=== PATIENT | male | born 1945 | race Caucasian/White ===

== ENCOUNTER 2016-10-26 19:38 | Inpatient (IN) | payer MEDICARE, OTHER ==
[~2016-10-26] VITALS: Ht 182.9 cm; Wt 77.7 kg
--- NOTE | ~2016-10-26 | ER ---
PATIENT'S NAME: ARNAUD LION [facility] AGE: 71 Y [address] ROOM: [place] [address] LOCATION: GPCU ADMIT DATE: 10/26/2016 ER/Outpatient Report DISCHARGE DATE: FAMILY PHYSICIAN: BREANNA REDDY MD ATTENDING PHYSICIAN: MARVA HO Time of arrival: 1938 hours. Time of evaluation: 1941 hours. CHIEF COMPLAINT: High blood pressure and right knee pain. HISTORY OF PRESENT ILLNESS: The patient is a 71-year-old male who presents to the emergency department today with a chief complaint of right knee pain, right leg pain, and high blood pressure. He was initially seen and evaluated over Dr. Reddy' office; however, he was found to have an abdominal bruit as well as right leg pain and high blood pressure, and was sent over here to the emergency department for further evaluation, treatment, and management. The patient denies any chest pain. No shortness of breath. He denies any abdominal pain. No fevers or chills. No nausea or vomiting. The pain is currently mild in severity. It is sharp. It is in the right leg. PAST MEDICAL HISTORY: None. PAST SURGICAL HISTORY: Left wrist, hernia. SOCIAL HISTORY: The patient denies any tobacco, alcohol, or illicit drug use. ALLERGIES: NO KNOWN DRUG ALLERGIES. MEDICATIONS: None. PRIMARY CARE DOCTOR: Breanna Reddy M.D. REVIEW OF SYSTEMS: All systems are reviewed by myself and are negative with the exception of those discussed in HPI and past medical history. PATIENT'S NAME: ARNAUD LION [facility] AGE: 71 Y [address] ROOM: [place] [address] LOCATION: GPCU ADMIT DATE: 10/26/2016 ER/Outpatient Report DISCHARGE DATE: FAMILY PHYSICIAN: BREANNA REDDY MD ATTENDING PHYSICIAN: MARVA HO PHYSICAL EXAMINATION: VITAL SIGNS: Weight 77.8 kg, blood pressure 235/113, pulse 68, respiratory rate 16, temperature 98.4, oxygen saturation 94% on room air. GENERAL: The patient is a 71-year-old male who appears stated age, in no acute distress at this time. HEENT: Head: Normocephalic, atraumatic. Pupils are equal, round, and reactive to light. Extraocular motions are intact. Nares are patent bilaterally. TMs are clear. Oropharynx is clear. NECK: Supple. There is no nuchal rigidity. CARDIOVASCULAR: Regular rate and rhythm. No murmurs, rubs, or gallops. LUNGS: Clear to auscultation bilaterally. No wheezes, rales, or rhonchi. ABDOMEN: Soft, nontender, and nondistended. No rebound, rigidity, or guarding. MUSCULOSKELETAL: The patient does have tenderness to palpation diffusely of the right leg with some mild swelling noted. SKIN: Warm and dry. EXTREMITIES: 2/4 pulses which are equal in all 4 extremities. LABORATORY DATA AND X-RAYS: Labs and x-rays are obtained. EKG is obtained, is interpreted by myself, does show sinus rhythm with a rate of 60, no left axis deviation, normal intervals. There is ST depression noted in V6, aVL, and I. There is T-wave inversions noted in I, aVL, V5, and V6. There is no ST elevation. CBC is unremarkable except for hemoglobin 16.2, platelet 149. Coags are normal. CMP is unremarkable except for potassium 3.1, glucose 104. LFTs are normal. Magnesium is normal. CK is normal. CK-MB is normal. Troponin 0.044, proBNP is 2016. DVT is negative. D-dimer is 0.63. CT scan angio of the aorta shows no evidence of aneurysm or dissection. There is pzyjdeak-ts-cqsqxy proximal right renal artery stenosis. There is an aneurysm in the left common iliac. There is an enlarged right thyroid. Repeat 2-hour cardiac enzymes are obtained and they do show CK is normal, CK-MB is normal, troponin 0.057. IMPRESSION: 1. Hypertensive emergency. 2. Hypokalemia. 3. Abnormal EKG. 4. Elevated troponin. 5. Vpnxejtl-nl-gcvurs proximal right renal artery stenosis. 6. Left common iliac aneurysm. 7. Enlarged right thyroid. 8. Initial visit. EMERGENCY DEPARTMENT COURSE: The patient was brought back to the examination room. Seen and evaluated by myself. IV is established. Laboratory analysis and imaging are obtained as PATIENT'S NAME: ARNAUD LION [facility] AGE: 71 Y [address] ROOM: [address] [place] [id number] LOCATION: GPCU ADMIT DATE: 10/26/2016 ER/Outpatient Report DISCHARGE DATE: FAMILY PHYSICIAN: BREANNA REDDY MD ATTENDING PHYSICIAN: MARVA HO described above. The patient is given sublingual nitroglycerin for blood pressure control. He is initiated on nitroglycerin drip. He does not have any chest pain. He certainly has abnormal EKG with elevated cardiac enzymes. With his elevated blood pressure, I do feel he will require admission to the hospital for further evaluation, treatment, and management. I have contacted Dr. Reddy and discussed the case with him. He does recommend admission to the Hospitalist Service. I did discuss the case with Dr. Ho. He does agree to accept the patient for further evaluation, treatment, and management. DISPOSITION: The patient is admitted under the care of Dr. Ho in stable condition. DO ARELY GLOVER/modl /[id number] d: 10/27/16701 t: 10/27/16 1923, OUTPATIENT REPORT
--- NOTE | ~2016-10-26 | DS ---
PATIENT'S NAME: ARNAUD LION [facility] AGE: 71 Y [address] ROOM: [address] [address] LOCATION: [facility] ADMIT DATE: 10/26/2016 Discharge Summary DISCHARGE DATE: FAMILY PHYSICIAN: Oz Reddy MD ATTENDING PHYSICIAN: Isai Iglesias ADDENDUM: Discussion had at the time of transfer with the patient's that the patient follows very homeopathic medical advise and would not want to be on long-term statin therapy of any kind, based on their review of recent literature. After discussion, the patient's is amenable to short-term therapy with this agent. In addition, we will consider addition of spironolactone given persistent hypokalemia and would recommend repeat BMP in 1 week given concomitant therapy with lisinopril and spironolactone. MD MARLENE JIMENEZ/doyle /[id number] d: 11/03/1634 t: 11/03/16 1643, DISCHARGE SUMMARY
--- NOTE | ~2016-10-26 | CON ---
PATIENT'S NAME: ARNAUD LION [facility] AGE: 71 Y [address] ROOM: [place] [address] LOCATION: [facility] ADMIT DATE: 10/26/2016 Consultation DISCHARGE DATE: FAMILY PHYSICIAN: BREANNA PEARCE MD ATTENDING PHYSICIAN: MARVA HO DATE OF CONSULTATION: 10/30/2016 REFERRING PHYSICIAN: JAD ASHTON MD TIME: 11:30 a.m. CHIEF COMPLAINT: CVA. HISTORY OF PRESENT ILLNESS: This is a 71-year-old male who was admitted on the . He does not take any home medication and does not see a physician. He had been actually having right knee pain and came in to the hospital for evaluation of that after seeking care at his primary care doctor and having a blood pressure of 230. He did have some vertigo a couple of months ago, but really has never passed out. He denies any chest pain, shortness of breath, vision changes, headache, palpitations, or any other symptoms. His states occasionally at night he will put her hand on his chest to feel his heart because it seems like it is racing. He also has a very remote history of seeing Dr. Galdamez for rapid heart rate. This was at least 15 years ago. Today, we are being consulted because his MRI does show a recent stroke. REVIEW OF SYSTEMS: All systems were reviewed and are negative except of those mentioned in the HPI. PAST MEDICAL HISTORY: Hypertension. The patient does not take any medications for this. ALLERGIES: NONE. HOME MEDICATIONS: None. SOCIAL HISTORY: The patient is . He denies any alcohol, tobacco, or illegal drug use. PAST SURGICAL HISTORY: PATIENT'S NAME: ARNAUD LION [facility] AGE: 71 Y [address] ROOM: [address] [address] LOCATION: [facility] ADMIT DATE: 10/26/2016 Consultation DISCHARGE DATE: FAMILY PHYSICIAN: BREANNA PEARCE MD ATTENDING PHYSICIAN: MARVA HO 1. Left wrist surgery. 2. Tonsillectomy. FAMILY HISTORY: The patient's father from old age from an unknown cause. Mother had a heart problem, but he does not know other details, and she at an old age. PHYSICAL EXAMINATION: VITAL SIGNS: Temperature 98.1 tympanic, pulse 63, respirations 14, blood pressure 155/68, and oxygen saturation is 98% on 2 L. GENERAL: The patient is in no apparent distress. He appears well groomed and cooperates with the interview. HEENT: Pupils are equal, round, and reactive to light. Extraocular muscles are intact. NECK: No JVD noted. No carotid bruits auscultated. No nuchal rigidity. CARDIOVASCULAR: Regular rate and rhythm with normal S1 and S2. No murmurs, rubs, or gallops. RESPIRATORY: Clear to auscultation. No rales. No rhonchi. No crackles. No wheezing. ABDOMEN: Soft, nontender, and nondistended. Bowel sounds present. No hepatomegaly noted. EXTREMITIES: No edema noted to extremities. Pulses are present, and extremities are warm. NEUROLOGIC: NIH Stroke Scale is as follows: Level of consciousness 1, current month and date 1, open and close eyes 1, best gaze 0, visual field testing 1, facial paresis 0, left arm motor function 0, right arm motor function 0, left leg motor function 0, right leg motor function 0, limb ataxia 0, sensory 0, best language 0, dysarthria 1, Extinction and inattention 1, for a total NIH Stroke Scale of 6. Gait was not assessed; however, PT states they did walk the patient to the bathroom, and he needed frequent cuing because of a left apparent field cut. DIAGNOSTIC DATA: Diagnostics include an MRI brain. The diffusion weighted imaging shows a large area of abnormal or restricted diffusion at the posterior right cerebral hemisphere involving the right occipital lobe extending anteriorly to the medial posterior right parietal lobe and medial right temporal lobe. Appearance is consistent with acute ischemic infarct in the HADOOP APPLICATION DEVELOPER territory. Also, there are small areas of abnormal or restricted diffusion in the right thalamus seen on series 6, image 47, at the periventricular white matter of the left posterior parietal lobe on series 6, image 50, and in the white matter at the centrum ovale in the right parietal lobe again on series 6, image 54. There are generalized atrophic changes with prominence of the ventricles, sulci, and CSF spaces. There are several areas of T2 and FLAIR PATIENT'S NAME: RANAUD LION [facility] AGE: 71 Y [address] ROOM: [address] [address] LOCATION: [facility] ADMIT DATE: 10/26/2016 Consultation DISCHARGE DATE: FAMILY PHYSICIAN: BREANNA PEARCE MD ATTENDING PHYSICIAN: MARVA HO signal in the white matter of both cerebral hemispheres consistent with white matter small-vessel ischemic changes. There is an area of encephalomalacia from an old infarct at the posterior left cerebral hemisphere. There are additional small areas of encephalomalacia from old infarct at the left and right cerebellar hemisphere at the level of the 4th ventricle. On the gradient echo images, there are large number of punctate areas of low signal in the cerebral hemispheres consistent with old cerebral microhemorrhages. These could be related to hypertension or cerebral amyloid. In addition, MRA of the brain was carried out. It reveals a vessel cutoff at the origin of the right HADOOP APPLICATION DEVELOPER with evidence for some collateral flow to the vessel from the posterior communicating artery. In summary, this 71-year-old male admitted with, at first, what looked like hypertensive crisis, has had a right HADOOP APPLICATION DEVELOPER stroke. His MRA demonstrates a HADOOP APPLICATION DEVELOPER cut off, and the MRI demonstrates a fairly large stroke. ASSESSMENT AND PLAN: 1. Cerebrovascular accident. To further investigate why this patient had this, we are awaiting carotid studies and echocardiogram. After these studies are evaluated, we can make recommendation as to possible causes of the stroke or further testing as the case may be. 2. Stroke prevention. The patient can be on aspirin, and thankfully, the hospitalists have already ordered aspirin for us. The patient also needs a statin medication. His was present at the bedside for examination and discussion of the plan of care. The plan of care was also discussed with the hospitalist team. Thank you for the opportunity to participate in this patient's plan of care, and please let us know if you have any questions. MOOSE FLORENTINO APRN FOR ANAND POLLARD MD PP/doyle /[id number] d: 10/31/161913 t: 11/08/161, CONSULTATION REPORT
--- NOTE | ~2016-10-26 | DS ---
PATIENT'S NAME: ARNAUD LION [facility] AGE: 71 Y [address] ROOM: [place] [address] LOCATION: GICU ADMIT DATE: 10/26/2016 Discharge Summary DISCHARGE DATE: 11/03/2016 FAMILY PHYSICIAN: Oz Reddy MD ATTENDING PHYSICIAN: Isai Iglesias ADMISSION DIAGNOSIS: Hypertensive emergency. 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 SECONDARY DIAGNOSES: 1. Essential hypertension. 2. Renal artery stenosis. 3. Saccular iliac artery aneurysm. 4. Hypokalemia. 5. Troponin elevation. 6. Right knee pain, probable osteoarthritis. PROCEDURES PERFORMED: 1. Carotid ultrasound Dopplers showing bilaterally mild 1% to 39% plaque and stenosis that was performed October 29. 2. On November 01, transesophageal echocardiogram showing normal RV and LV size and systolic function. EF 60% to 65%. LA mildly dilated. RA normal in size. Mild left-sided degenerative valvular changes with moderate aortic valve sclerosis. No LV thrombus. No left atrial appendage thrombus. No evidence of shunt by color bubble study. Grade 1 plaque seen in the descending thoracic aorta without mobile components noted. CONSULTATIONS: Cardiology and Neurology. PRESENTING COMPLAINTS: This is a 71-year-old male off all home medications with rare medical encounters who presented initially with approximately 1 week of right knee pain and swelling without erythema or warmth. More pertinently, he noted intermittent vertigo without syncope of late. He had denied chest pain, shortness of breath, blurred vision, or headache upon initial presentation on the . He was admitted after having presented to his primary care physician, found to have hypokalemia as well as hypertension to the 230 systolic range. He was thus admitted for hypertensive emergency. HOSPITAL COURSE: Initial laboratory evaluation noted troponin 0.044, followed by 0.057 without EKG changes aside from LVH. Remainder of laboratory workup notable for creatinine of 1.2, potassium 3.1, magnesium 2.5. CT angiogram of chest and abdomen showed no acute findings or concern for aortic aneurysm. It PATIENT'S NAME: ARNAUD LION [facility] AGE: 71 Y [address] ROOM: [place] [address] LOCATION: GICU ADMIT DATE: 10/26/2016 Discharge Summary DISCHARGE DATE: 11/03/2016 FAMILY PHYSICIAN: Oz Reddy MD ATTENDING PHYSICIAN: Isai Iglesias did note moderately severe stenosis of the right renal artery at its origin as well as a saccular aneurysm at the left common iliac artery 28 mm in caliber, 30 mm in length. On admission, the patient was started on amlodipine, hydralazine, lisinopril, and hydrochlorothiazide within the first couple of days of admission to manage blood pressures. He also did intermittently require nicardipine drip to keep systolic blood pressures less than 160. Given the degree of blood pressure elevation as well as mild troponin elevations initially, the patient was started on a heparin drip with concern for NSTEMI. This was discontinued on the . On the , the patient had developed worsening nausea, vomiting, and vertigo prompting stat CT of the head and subsequently an MRI without contrast showing a right IRRIGATOR HEAD ischemic stroke. At this point, blood pressure medications and drips were discontinued. The patient was started on statin, aspirin, and a Neurology consult was placed. Subsequent workup from that stroke included carotid duplex and WILLIE both noted above. No obvious cardioembolic source or severe atherosclerotic disease was noted. Most predominant symptoms of stroke included left preferential gaze and left-sided drift, upper and lower extremities though strength remained intact bilaterally and no sensory deficits were noted. The patient's rehabilitative course from this point forward had been somewhat stable without new neurologic deficits until date of discharge. The patient did deal with intermittent bradycardia requiring adjustment of dose of metoprolol, which had been subsequently added. Blood pressures remained controlled 150s to 180s systolic 48 hours prior to discharge with occasional values increased above this but without new neurological deficits and well controlled on oral meds. At the time of discharge, antihypertensive regimen included amlodipine 10 mg, hydralazine 50 mg p.o. t.i.d., lisinopril 20 mg b.i.d., metoprolol tartrate 50 mg b.i.d., and an additional 25 mg hydralazine p.o. q.6 hours p.r.n. He was maintained on aspirin 81 mg, atorvastatin 80 mg for stroke. CONDITION: Fair. PHYSICAL EXAMINATION: VITAL SIGNS: Exam on date of discharge including last set of vital signs. Temperature 98, pulse 79, respirations 17, blood pressure 164/84, saturating 94% on room air, weight 77.7 kg. GENERAL: The patient is alert, up in chair, and endorsing intermittent confusion though answers questions appropriately. HEENT: Head normocephalic, atraumatic. Pupils equal round reactive to light. Extraocular muscles intact. CARDIOVASCULAR: No carotid bruit. Regular rate and rhythm without murmur. Frequent PACs on telemetry. RESPIRATORY: Lungs clear to auscultation bilaterally. Effort normal on room air. No wheezes. ABDOMEN: Soft, nontender, nondistended. Normoactive bowel sounds. : The patient does have Burch catheter. PATIENT'S NAME: ARNAUD LION [facility] AGE: 71 Y [address] ROOM: [place] [address] LOCATION: [facility] ADMIT DATE: 10/26/2016 Discharge Summary DISCHARGE DATE: 11/03/2016 FAMILY PHYSICIAN: Oz Reddy MD ATTENDING PHYSICIAN: Isai Iglesias EXTREMITIES: 5/5 strength bilaterally. No bilateral lower extremity edema appreciated. 2+ dorsalis pedis and posterior tibial pulses bilaterally. NEUROLOGIC: The patient with normal visual field testing which has waxed and waned throughout stay and occasionally involves limited left lateral peripheral vision. Continues to exhibit left arm drift. However, strength as mentioned 5/5. No sensory deficits. DISPOSITION: To inpatient rehabilitation program. DISCHARGE MEDICATIONS: Pertinent medications for hypertension and CVA listed. Rest as per JUN. DISCHARGE INSTRUCTIONS: Diet: No restrictions. Activity: As tolerated with assistance. FOLLOWUP: To be determined following rehabilitation stay. TIME: I spent greater than 35 minutes on the date of discharge involving direct patient care as well as coordination of discharge. MD TONY MEADOWS/modl /[id number] d: 11/04/16 0338 t: 11/04/16 1533, DISCHARGE SUMMARY
--- NOTE | ~2016-10-26 | CON ---
PATIENT'S NAME: ARNAUD LION [facility] AGE: 71 Y [address] ROOM: [facility] [place], [place] [address] LOCATION: [facility] ADMIT DATE: 10/26/2016 Consultation DISCHARGE DATE: FAMILY PHYSICIAN: BREANNA PEARCE MD ATTENDING PHYSICIAN: MARVA HO REFERRING PHYSICIAN: JAD ASHTON MD I was asked to see this patient in Teleneurology consultation. Consultation was performed with the assistance of nurse practitioner, Divina Valera, on 10/30/2016. 35 minutes spent reviewing chart along with the nurse practitioner, repeating morales portions of history and examination, and discussing plan of care with the patient and family at bedside. I agree with the discussed assessment and plan of care. Jp Alvarado MD Neurology Telespecialist Services. MD ELIO GARCIA/doyle /[id number] d: t: 10/30/16 1243, CONSULTATION REPORT
--- NOTE | ~2016-10-26 | CON ---
PATIENT'S NAME: ARNAUD LION [facility] AGE: 71 Y [address] ROOM: [place] [address] LOCATION: GPCU ADMIT DATE: 10/26/2016 Consultation DISCHARGE DATE: FAMILY PHYSICIAN: BREANNA PEARCE MD ATTENDING PHYSICIAN: MARVA HO REFERRING PHYSICIAN: JAD ASHTON MD REFERRING PHYSICIAN: Dr. Ho. REASON FOR CONSULT: Accelerated uncontrolled hypertension, elevated troponin. HISTORY OF PRESENT ILLNESS: Mr. Lion is a pleasant 71-year-old, male, who was admitted from the emergency room yesterday. The patient has been symptomatic since 1 week with complaints of right knee pain. He has been traveling to [place] to visit his brother. The patient stated that he has had off and on right knee swelling in the past after prolonged driving. He was seen in the clinic and was found to have severe hypertension and he was referred to emergency room for further management. The patient was found to have systolic hypertension with a systolic blood pressure of about 230 mmHg. He was also noted to have hypokalemia. The patient was started on nitroglycerin drip. During his further workup, the patient was found to have mildly elevated troponin. He denied any chest pain. Also denied any shortness of breath. Presently his blood pressure is 170 mmHg systolic on nitroglycerin 15 mcg per minute. REVIEW OF SYSTEMS: The patient denied any recent change in vision. No history of vomiting. He did have an episode of vertigo a few weeks ago. No history of fever. No history of chest pain or shortness of breath. No history of palpitations except he had palpitations several years ago and had workup done by Dr. Galdamez. No history of diarrhea or constipation. No history of leg cramps except pain in the right knee area. Review of other systems was essentially negative. PAST MEDICAL HISTORY: The patient stated that he had hypertension all his life. However, he has not been taking any medications. He also has history of hernia repair in the past. HOME MEDICATIONS: None. ALLERGIES: NO KNOWN DRUG ALLERGIES. PATIENT'S NAME: ARNAUD LION [facility] AGE: 71 Y [address] ROOM: [place] [address] LOCATION: GPCU ADMIT DATE: 10/26/2016 Consultation DISCHARGE DATE: FAMILY PHYSICIAN: BREANNA PEARCE MD ATTENDING PHYSICIAN: MARVA HO SOCIAL HISTORY: The patient is and lives with his . He denied any alcohol or abuse or smoking history. FAMILY HISTORY: His father in his 80s. However, the cause is unknown. His mother had valve surgery and she in her 90s. PHYSICAL EXAMINATION: GENERAL: He is awake, alert, and oriented and in no distress. VITAL SIGNS: His pulse rate is 60 per minute, blood pressure is 172/60 mmHg, respiratory rate 15. HEENT: His head is atraumatic and normocephalic. Pupils are bilaterally equal and reactive. Oral mucosa is moist. NECK: No significant jugular venous distention is present. CARDIOVASCULAR: S1 and S2 are audible. They are regular in rate and rhythm with no audible murmur. RESPIRATORY: Bilateral vesicular breath sounds are audible with no adventitious sounds. ABDOMEN: Soft, nontender. No palpable organomegaly is present. Bowel sounds are present. EXTREMITIES: Right knee is mildly swollen. No pedal edema is present. NEUROLOGIC: The patient is awake, alert, and oriented. No focal neurological deficits are noted. SKIN: Warm and dry. LABORATORY DATA: His serial troponins were 0.04, 0.05. CPK 80 and 66, proBNP 2016. White blood cell count 7.7, hemoglobin 16.2, hematocrit 43.9, platelet count 149. Glucose 104, BUN 22, creatinine 1.2. Sodium 142, potassium 3.2. His EKG showed sinus rhythm at 60 beats per minute, left ventricular hypertrophy, T- wave inversions were noted in anterolateral leads, possibly due to left ventricular hypertrophy versus ischemia. CT scan of the chest showed ectatic ascending aorta at 4.3 cm. Also [id number] proximal renal artery stenosis was noted on the right side and aneurysmal left common iliac artery was noted. ASSESSMENT AND PLAN: 1. Accelerated uncontrolled hypertension. We will continue medical therapy with amlodipine 10 mg a day, hydrochlorothiazide 25 mg a day, lisinopril 5 mg daily, and hydralazine as needed for blood pressure control. We will increase the dose of lisinopril for blood pressure control. We will add beta-blockers depending on his heart rate. 2. Mildly elevated troponin. The patient has coronary artery disease risk factors including hypertension and the patient is a male. His EKG showed PATIENT'S NAME: ARNAUD LION [facility] AGE: 71 Y [address] ROOM: [address] [place] [address] [facility] ADMIT DATE: 10/26/2016 Consultation DISCHARGE DATE: FAMILY PHYSICIAN: BREANNA PEARCE MD ATTENDING PHYSICIAN: MARVA HO T-wave inversion in anterolateral leads. His troponins are mildly elevated. We will obtain stress test after his blood pressure is controlled. 3. Right renal artery stenosis with uncontrolled hypertension. We will consider vascular evaluation. 4. Thoracic ascending aortic aneurysm. We will continue to monitor. The plan of care was discussed with the patient and his . We will follow the patient along with you. Thank you for allowing us in taking part in the care of this pleasant patient. MD JORGE GRIFFIN/doyle /[id number] d: 10/27/16 1734 t: 11/11/16 1614, CONSULTATION REPORT
--- NOTE | ~2016-10-26 | CON ---
PATIENT'S NAME: ARNAUD LION [facility] AGE: 71 Y [address] ROOM: [facility] [place] [place] [address] LOCATION: [facility] ADMIT DATE: 10/26/2016 Consultation DISCHARGE DATE: FAMILY PHYSICIAN: BREANNA PEARCE MD ATTENDING PHYSICIAN: MARVA HO REFERRING PHYSICIAN: JAD ASHTON MD SUBJECTIVE: This 71-year-old gentleman is referred for rehab evaluation; possible [facility] admission, admitted on 10/26, with 1 week duration of right knee pain with some swelling without erythema. No warmth of the skin. No change of color. He had some pain in the right calf also, complained of headaches per his . On and off, he had also vertigo and this was going on for several months. No chest pain. No shortness of breath. No cough. No expectoration. No chills. He was checked by his family physician and found to have high blood pressure, above 230/110 with hypokalemia, was referred to the hospital for evaluation and definitive management. PAST HISTORY OF SIGNIFICANCE: 1. Left wrist surgery. 2. Tonsillectomy. He does not follow with any physician for years. 3. He does not smoke and/or use alcohol. 4. His EKG showed left ventricular hypertrophy. CT scan of the chest showed ascending aorta to be 4.3 cm with calcification and some calcification of the right renal artery with stenosis and aneurysm finding in the left common iliac artery and also enlarged right thyroid lobe with isthmus. OBJECTIVE: At the present time; he is alert, oriented, slow in his reaction, and left facial little weakness, slightly confused, and needs repetition to follow. His left side distal temporal visual field is cut with neglect. Mild facial droop on the left side. His voice is clear, but he talks with very low voice. His heart at the present time is irregular with systolic murmur and soft palate is moving well, however, his tongue is a little bit slow on the left side in comparison to the right. His vital signs are as follows. Blood pressure 155/68, temperature 98.1, pulse 63, and respiration rate 14. He is 6 feet tall and weighs 78.2 kg. MEDICATIONS: PATIENT'S NAME: ARNAUD LION [facility] AGE: 71 Y [address] ROOM: [address] [address] LOCATION: CU ADMIT DATE: 10/26/2016 Consultation DISCHARGE DATE: FAMILY PHYSICIAN: BREANNA PEARCE MD ATTENDING PHYSICIAN: MARVA HO He is on the following medications. 1. Norvasc. 2. Toprol. 3. Lisinopril. 4. Cardene. 5. Nitroglycerin. 6. Lipitor. 7. Apresoline. 8. Flomax. 9. Zofran. 10. Tylenol. 11. Aspirin. 12. Morphine sulfate. 13. Dextrose 5% in 0.9% normal saline. 14. Protonix. 15. NaCl 0.9%. 16. Lorazepam. ASSESSMENT AND PLAN: We will put on intensive PT, OT, and Speech. We will have Speech evaluate his swallowing to be sure that he is safe when swallowing. We will have to follow him for now and if he is stable provided he is okayed by the admitting physician; I will take him for intensive rehabilitation of about 2 to 3 weeks aiming to discharge home modified independent and follow on outpatient basis. I did explain all this to his and his son and himself. They verbalized understanding and agreement with plan of care. Thank you for this referral. MICHELLE ZUNIGA MD WMS/modl /[id number] CC: David Fischer MD d: 10/30/16 1344 t: 10/31/16 1313, CONSULTATION REPORT
--- NOTE | ~2016-10-26 | ECHO ---
Transthoracic Echocardiography Report (TTE) Demographics Patient Name ARNAUD LION Date of Study 10/27/2016 Patient Number [id number] Visit Number [id number] Date of 1945 Room Number G6310 Gender Male Number Age 71 year(s) Referring Barry Bell Director Of Research And Development Shaila Pennington RVT, Physician MD ADAM Walter MD Physician Interpreting Olievr Rodriguez Senior Market Research Analyst Physician A Supervising Ordering Kelsie Walter MD, MD/MLP Physician Nurse Stress State Epidemiologist Conclusions Contractility Score Summary Normal Left Ventricular contractility was noted. Summary The estimated left ventricular ejection fraction is 70%. Severe concentric left ventricular hypertrophy. Mild LVOT gradient at rest, with the valsalva maneuver there is no increase in the gradient. Diastolic assessment reveals Grade I diastolic dysfunction. Mildly dilated right ventricle with normal right ventricular function. The left atrium is moderately dilated. The right atrium is mildly dilated. Mild mitral annular calcification of the posterior mitral valve annulus. There is mild to moderate aortic regurgitation by color Doppler. Mild tricuspid regurgitation by color Doppler. The aortic root appears mildly dilated. The maximum diameter measures 3.3 cm. The ascending aorta appears mildly dilated. The maximum diameter measures 3.7 cm. Procedure Type of Study TTE procedure:2D Echocardiogram. Procedure Date Date: 10/27/2016 Start: 07:42 AM Study Location: Inpatient Portable Technical Quality: Adequate visualization Indications:Chest pain. Appropriate Use Criteria: 8 Patient Status: Routine Rhythm: NSR HR: 54 bpm BP: 149/89 mmHg M-Mode/2D Measurements LV Diastolic Dimension: 4.22 cm LV Systolic Dimension: 2.06 cm LV Septum Diastolic: 2.42 cm LV PW Diastolic: 2 cm AO Root Dimension: 3.3 cm Cardiac Output: 6.75 l/min AV Cusp Separation: 2.1 cm RV Diastolic Dimension: 3.22 cm LA volume: 73 ml LVOT: 2.2 cm RV Base: 5.11 cm LVOT VTI: 32.9 cm RV Mid: 2.08 cm LV Stroke volume: 125 ml TAPSE: 2.55 cm TDI-S': 16.2 cm/s Doppler Measurements AV Peak Velocity: 1.51 m/s MV Peak E-Wave: 0.83 m/s AV Peak Gradient: 9.12 mmHg MV Peak A-Wave: 1.24 m/s AV Mean Gradient: 6 mmHg MV E/A Ratio: 0.67 LVOT Peak Velocity: 1.43 m/s MV P1/2t: 61 msec AV P1/2t: 959 msec TR Gradient:26.83 mmHg PV Peak Velocity: 0.78 m/s Estimated RAP:5 mmHg PV Peak Gradient: 2.4 mmHg Estimated RVSP: 32 mmHg Estimated PASP: 31.83 mmHg E' Septal Velocity: 0.04 m/s A' Septal Velocity: 0.08 m/s E' Lateral Velocity: 0.04 m/s A' Lateral Velocity: 0.1 m/s Findings Left Ventricle Severe concentric left ventricular hypertrophy. Mild LVOT gradient at rest, with the valsalva maneuver there is no increase in the gradient. Diastolic assessment reveals Grade I diastolic dysfunction. Right Ventricle Mildly dilated right ventricle with normal right ventricular function. Left Atrium The left atrium is moderately dilated. There is no evidence of patent foramen ovale or atrial septal defect by color Doppler. Right Atrium The right atrium is mildly dilated. IVC measures 1.54 cm with inspiratory collapse. Mitral Valve Mild mitral annular calcification of the posterior mitral valve annulus. Trivial mitral regurgitation by color Doppler. Aortic Valve The aortic valve is mildly sclerotic. There is mild to moderate aortic regurgitation by color Doppler. Tricuspid Valve Mild tricuspid regurgitation by color Doppler. Normal estimated pulmonary artery pressure. Pulmonic Valve Normal pulmonic valve structure and function. Pericardial Effusion No evidence of pericardial effusion. Miscellaneous The aortic root appears mildly dilated. The maximum diameter measures 3.3 cm. The ascending aorta appears mildly dilated. The maximum diameter measures 3.7 cm. Pleural Effusion No evidence of pleural effusion. Contractility Score LV regional wall motion:(0-Non visualized 1-Normal 2-Hypokinesis 3-Akinesis 4-Dyskinesis 5-Aneurysm) Signature dtt: Ita Boyd dtd: 10/27/16 0742 Physician Self Edit
--- NOTE | ~2016-10-26 | ENPV ---
Vascular Lower Extremities DVT Study Procedure Demographics Patient Name ARNAUD LION Date of Study 10/26/2016 Patient Number [id number] Gender Male Date of 1945 Age 71 Visit Number [id number] Height 72 Accession Number [id number] Weight 171 Referring Rafa Morales MD Interpreting Fransisco Loya MD Physician Physician Physician Ordering Physician Rafa Morales MD Avionics Technician Fire Hazard Inspector Dariela Alexander RVT Conclusions Summary No evidence of deep vein thrombosis in the right lower extremity . Procedure Type of Study: Veins:Lower Extremities DVT Study, Lower Extremity Right. Indications for Study:Swelling of Limb. Appropriate Use Criteria:9 Patient Status:STAT. Study Location:ER. Technical Quality:Adequate visualization. Velocities are measured in cm/s ; Diameters are measured in cm Right Lower Extremities DVT Study Measurements Right 2D and Doppler Measurements + + + + +------+------+ + !Location !Visualized!Compressibility!Thrombosis!Signal!Reflux!Reflux ! ! ! ! ! ! ! !(sec) ! + + + + +------+------+ + !GSV Thigh !Yes !Yes !None !Phasic!No ! ! + + + + +------+------+ + !Common !Yes !Yes !None !Phasic!No ! ! !Femoral ! ! ! ! ! ! ! + + + + +------+------+ + !Prox !Yes !Yes !None !Phasic!No ! ! !Femoral ! ! ! ! ! ! ! + + + + +------+------+ + !Mid Femoral!Yes !Yes !None !Phasic!No ! ! + + + + +------+------+ + !Dist !Yes !Yes !None !Phasic!No ! ! !Femoral ! ! ! ! ! ! ! + + + + +------+------+ + !Popliteal !Yes !Yes !None !Phasic!No ! ! + + + + +------+------+ + !Gastroc !Yes !Yes !None !Phasic!No ! ! + + + + +------+------+ + !PTV !Yes !Yes !None !Phasic!No ! ! + + + + +------+------+ + !Peroneal !Yes !Yes !None !Phasic!No ! ! + + + + +------+------+ + Left Lower Extremities DVT Study Measurements Left 2D and Doppler Measurements + + + + +------+------+ + !Location !Visualized!Compressibility!Thrombosis!Signal!Reflux!Reflux ! ! ! ! ! ! ! !(sec) ! + + + + +------+------+ + !Common !Yes !Yes !None ! ! ! ! !Femoral ! ! ! ! ! ! ! + + + + +------+------+ + Signature dtt: RUBY ROBLES dtd: 10/26/162028 Physician Self Edit
--- NOTE | ~2016-10-26 | HP ---
PATIENT'S NAME: ARNAUD LION [facility] AGE: 71 Y [address] ROOM: [place] [address] LOCATION: GPCU ADMIT DATE: 10/26/2016 History & Physical DISCHARGE DATE: FAMILY PHYSICIAN: BREANNA PEARCE MD ATTENDING PHYSICIAN: MARVA HO DATE OF SERVICE: CHIEF COMPLAINT: Right knee pain, dizziness, troponin elevation, and hypertensive emergency. HISTORY OF PRESENT ILLNESS: This is a 71-year-old male, who does not take any home medication and rarely see a physician, and the story is that about 1 week ago, he has been complaining of right knee pain with swelling, but no erythema and no warmth to touch. The pain is worse with prolonged immobilization but sometimes also with movement. He has some right posterior calf pain as well to palpation, just on and off for a few days, but then went away. He denies any trauma to the right knee in the past. The other symptom is that he also complained of some vertigo about a few months ago on and off, but he never passed out. He denies any chest pain or shortness of breath or blurry vision or headache or palpitation or any other symptoms. Today, the patient went to see his medical provider for checkup, and he was found to have hypokalemia and hypertension in the 230 systolic, and the patient was sent over here for further evaluation. REVIEW OF SYSTEMS: As mentioned in the history of present illness. All other systems were reviewed and they were negative except for those mentioned in the history of present illness. PAST MEDICAL HISTORY: Hypertension, but he does not take any home medication at home. ALLERGIES: NONE. HOME MEDICATIONS: None. SOCIAL HISTORY: The patient denies any alcohol or illegal drug use. PAST SURGICAL HISTORY: 1. Left wrist surgery in the past. PATIENT'S NAME: ARNAUD LION [facility] AGE: 71 Y [address] ROOM: [place] [address] LOCATION: GPCU ADMIT DATE: 10/26/2016 History & Physical DISCHARGE DATE: FAMILY PHYSICIAN: BREANNA PEARCE MD ATTENDING PHYSICIAN: MARVA HO 2. Tonsillectomy. FAMILY HISTORY: Father from old age from a cause that he forgot. Mother has some heart problem, but he does not know other details, and she also at old age. PHYSICAL EXAMINATION: VITAL SIGNS: At the time of my dictation, temperature 98, heart rate 55, blood pressure 220/160, respiration 14, and saturation 98% on room air. GENERAL APPEARANCE: Alert and oriented x3. In no acute distress. HEENT: Pupils are equally round and reactive to light. Extraocular muscles intact. Anicteric sclerae. Nasal turbinates are normal bilaterally. Moist oral mucosa. NECK: No JVD. CARDIOVASCULAR: Regular rate and rhythm. Normal S1, S2. No murmurs, no rubs, no gallops. RESPIRATORY: Clear to auscultation. No rales, no rhonchi, no crackles, no wheezing. ABDOMEN: Soft, nontender, nondistended, bowel sounds present, no mass. EXTREMITIES: No edema in the upper or lower extremities. However, he does have a swelling in the right knee when compared to the left knee, but there is no pain with movement both passive or active range of motion of the right knee. There is swelling in the right knee, but there is no warmth or erythema. SKIN: No ulcer, no rash, no cyanosis. NEUROLOGIC: Grossly nonfocal. LABORATORY DATA: Troponin 0.044 followed by 0.057, CPK 80 followed by 66, proBNP 2016. White blood cells 7.7, hemoglobin 16.2, hematocrit 43.9, platelets 149. Glucose 104, BUN 22, creatinine 1.2, sodium 142, potassium 3.1, chloride 105, CO2 of 28, calcium 8.2, total protein 6.9, albumin 3.8, AST 25, ALT 23, alkaline phosphatase 78, total bilirubin 1.1, magnesium 2.5, anion gap 12.1, INR 1.06, CK-MB 2.4 followed by 2.0, GFR 62, D-dimer 0.63. IMAGING STUDIES: EKG on admission showed left ventricular hypertrophy with a heart rate at [address] angiogram of the chest and abdomen based on the preliminary report done on admission shows an ascending aorta at 4.3 cm. No aneurysm or dissection. Moderate, diffuse, calcified and noncalcified vascular disease including a [id number] proximal right renal artery stenosis and aneurysmal left common iliac artery. No pulmonary embolus. Markedly heterogeneous and [facility] 71 [facility] [address] ROOM: [address] [place], [place] [address] LOCATION: GPCU ADMIT DATE: 10/26/2016 History & Physical DISCHARGE DATE: FAMILY PHYSICIAN: BREANNA PEARCE MD ATTENDING PHYSICIAN: MARVA HO enlarged right thyroid lobe and isthmus. Recommend ultrasound correlation. ASSESSMENT AND PLAN: 1. Regarding his hypertensive emergency: Emergency because of the troponin elevation and on and off vertigo. The patient is alert and oriented x3. I will control the blood pressure with IV nitroglycerin drip due to troponin elevation, and as well because of the finding of the renal artery stenosis bilaterally, the most likely cause of his hypertensive secondary due to the renal artery stenosis, in this case, I will give him hydrochlorothiazide and ANTONIO inhibitor with lisinopril, which is the goal standard treatment for the renal artery stenosis. If it is failed, then the patient might need vascular intervention. However, medication trial will be tried first. In the meantime, I will add him on p.o. amlodipine and also add p.r.n. hydralazine for hypertensive emergency control. Further plan depends on clinical course. CT head is not performed given that the patient is alert and oriented x3 and denies any headache at the moment. If his mentation changes, then head CT will be performed. 2. Regarding his troponin elevation: The patient is in [id number] elevation myocardial infarction. EKG shows left ventricular hypertrophy, which is not reliable. I will treat him with ACS protocol with heparin drip and also with aspirin and also with Lopressor if the heart rate tolerates and also with nitroglycerin drip. IV morphine as well. The patient refused Lipitor given that he heard that some friends had myalgia and he refused to take the Lipitor; therefore, Lipitor would not be offered and given. Echo in the morning, cardiology consult in the morning. Cycle cardiac enzymes every 6 hours. Telemetry monitoring. N.p.o. IV fluids for gentle hydration. 3. Regarding his hypokalemia: Replace IV and also p.o. potassium chloride. 4. Regarding his right knee pain: We will get an x-ray right now and also depending on x-ray finding may consider Orthopedic Surgery consult to do the arthrocentesis. First of all, I am going to get an x-ray right now. The patient does not look septic. He had venous duplex US in ED of both legs and they came back normal without DVT. 5. Regarding his deep vein thrombosis prophylaxis: He will be put on heparin drip. 6. In addition, I will give him p.o. Protonix in the setting of heparin drip for gastrointestinal prophylaxis. 7. He is a full code. Time spent in care on the day of admission 60 minutes, 40 minutes was spent on counseling given that the patient had many questions and his also had many questions. I answered all of their questions and their concerns to their satisfaction, and I went over the plan of care in detail with the patient and the patient's and also with the nurse. I answered all of their questions to their satisfaction. The remainder of the time was spent on chart review PATIENT'S NAME: ARNAUD LION [facility] AGE: 71 Y [address] ROOM: [place] [address] LOCATION: GPCU ADMIT DATE: 10/26/2016 History & Physical DISCHARGE DATE: FAMILY PHYSICIAN: BREANNA PEARCE MD ATTENDING PHYSICIAN: MARVA HO and interview and also on the physical examination. Further plan will depend on clinical course. MAVRA HO MD CC/doyle /[id number]: [id number] T: [id number] HISTORY & PHYSICAL
--- NOTE | ~2016-10-26 | ECHO ---
Transesophageal Echocardiography Report (WILLIE) Demographics Patient Name ARNAUD LION Date of Study 11/01/2016 Patient Number [id number] Visit Number [id number] Date of 1945 Room Number G6230 Accession Number [id number] Gender Male Age 71 year(s) Referring Kelsie Walter MD Compressor Repairer Shaila Pennington RVT, Physician RDCS Physician Interpreting Servando Breaux Special Officer Automat Physician Supervising Ordering Physician Josh Centeno CRNA, MD/P Nurse Stress Management Services Technician Conclusions Summary Normal LV/RV size and systolic function. LVEF 60-65%. LA is mildly dilated. RA is normal in size. Mild degenerative changes of left sided valves, MV and AV. Moderate AV sclerosis. No LV apical thrombus. No evidence of KOMAL thrombus. Prominent coumadin ridge noted in KOMAL. Normal KOMAL velocities. IAS is intact. No evidence of shunt by color/bubble study. There is Grade 1 plaque seen in the descending thoracic aorta . No mobile components noted. Small pericardial effusion. Procedure Type of Study WILLIE procedure Procedure Date Date: 11/01/2016 Start: 07:46 AM Study Location: Inpatient Portable Technical Quality: Good visualization Indications:CVA. Appropriate Use Criteria: 8 Patient Status: Routine Rhythm: NSR HR: 76 bpm BP: 193/104 mmHg WILLIE Performed By: the attending and the bobbin washer Findings Miscellaneous The patient was brought to the WILLIE lab in the fasting state after informed consent was obtained in the written and verbal format. He was prepped with Bite block was placed by me. Once adequate anesthesia was obtained with anesthesia guidance with propofol sedation the WILLIE probe was placed by me down into the stomach. At the end of the case the probe was rotated and withdrawn. Patient tolerated the procedure well. Signature dtt: JAD ASHTON dtd: 11/01/16 0746 Physician Self Edit
--- NOTE | ~2016-10-26 | ESTC ---
Cardiac Perfusion Imaging Demographics Patient Name AYAD Cason Gender Male Patient Number [id number] Race Visit Number [id number] Ethnicity Corporate ID Room Number G6310 Accession Number [id number] Height 72 inches Date of 1945 Weight 170.2 pounds Coy Interpreting Physician Margarita Date of study 10/28/2016 Coy Supervising /CAROLE HAYS Technologist Soco Cespedes Ordering Physician Margarita Stress Coy quality technician Stress ECG Reading Margarita Cochran Manuel Physician Coy The procedure was explained in detail to the patient. Risks, complications and alternative treatments were reviewed. Written consent was obtained. Medications Reviewed with Patient prior to Procedure. Procedure Procedure Type: Nuclear Stress Test:Pharmacological, Cardiolite Stress Test Procedure Start time: 10/28/2016 11:24 Indications: Hypertension. Risk Factors The patient risk factors include:physical activity and hypertension. Conclusions Summary Perfusion Images: The overall quality of the study is fair, due to soft tissue attenuation . Left ventricular cavity size is noted to be mildly increased on the stress and rest studies. TID ratio is 1.11. There is no evidence of abnormal lung activity. The right ventricle is not visualized and cannot be assessed. Stress SPECT images and Rest SPECT images demonstrate homogenous tracer distribution throughout the myocardium except for mild decrease uptake in the area involving the basal anterior wall and basal inferior wall with no significant reversibility consistent with soft tissue attenuation. Gated SPECT imaging reveals mild anterior wall and septal hypokinesis. The left ventricular ejection fraction was calculated to be 50%. Impression ECG portion of stress test is clinically nondiagnostic for ischemia by diagnostic criteria. Myocardial perfusion imaging is mildly abnormal. The basal anterior and inferior wall matched defect is consistent with soft tissue attenuation. Gated SPECT imaging reveals mild anterior wall and septal hypokinesis. The left ventricular ejection fraction was calculated to be 50%. There are no previous studies for comparison . Stress Protocols Resting ECG Sinus rhythm, LVH with repolarization changes Pre-stress physical exam: Patient assessed by Dr Cox prior to testing. Predicted HR: 151 bpm ECG Findings Indeterminate ECG due to baseline abnormalities. Arrhythmias Occasional PACs Symptoms No symptoms with Lexiscan infusion. Stress Interpretation ECG portion of stress test is non diagnostic for ischemia by EKG criteria. Nuclear images are pending. Imaging Results Applied corrections - Motion correction applied High risk findings Summed scores - Summed stress score: 0 - Summed rest score: 1 - Summed difference score: -1 Stress ejection Ejection fraction:50 % EDV :219 ml ESV :110 ml Stroke volume :109 ml LV mass :227 gr Imaging Protocols Rest Stress Isotope:Tc99m Sestamibi IV Isotope: Tc99m Sestamibi IV Isotope dose:12.1 mCi Isotope dose:36.46 mCi Date:10/28/2016 09:27 Date:10/28/2016 11:55 Technique: SPECT Technique: Gated Supine SPECT Supine IV remains in place after procedure. Procedure Medications - Regadenoson (Lexiscan) 0.4 mg IV over 10-15 sec. I.V. 0.4 mg. Medical History Admission Data Admission date: 10/26/2016 Admission Time: 22:21 Hospital Status: Inpatient. Signatures dtt: COY COX dtd: 10/28/16 1124 Physician Self Edit
--- NOTE | ~2016-10-26 | ENPV ---
Carotid Duplex Study Demographics Patient Name ARNAUD LION Date of Study 10/29/2016 Patient Number [id number] Gender Male Date of 1945 Age 71 Visit Number [id number] Height 72 Accession Number [id number] Weight 170.2 Referring Barry Bell MD Interpreting Fransisco Loya MD Physician Physician Physician Ordering Physician Aaliyah Hernandez Jowl Trimmer Cable Mock Up Assembler Shaila Pennington [facility], [facility] Conclusions Summary The right internal carotid artery has mild, 1-39%, plaque and stenosis. The left internal carotid artery has mild, 1-39%, plaque and stenosis. The right vertebral artery is present with antegrade flow. The left vertebral artery is present with antegrade flow. Procedure Type of Study: Cerebral:Carotid, Carotid Doppler Bilateral. Indications for Study:Stroke. Appropriate Use Criteria:4 Blood Pressure:Right arm 155/72 mmHg.Left arm 167/75 mmHg. Patient Status:STAT. Study Location:Imaging Center. Technical Quality:Good visualization. Risk Factors - The patient's risk factor(s) include: lack of physical activity and arterial hypertension. Velocities are measured in cm/s ; Diameters are measured in cm Carotid Right Measurements Carotid Left Measurements + +--------+--------+ + + + +--------+ --------+ + + !Location !PSV !EDV !Angle !%Stenosis ! !Location !PSV ! EDV !Angle !%Stenosis ! + +--------+--------+ + + + +--------+ --------+ + + !Prox CCA !64 !16 !60 ! ! !Prox CCA !73 ! 16 !60 ! ! + +--------+--------+ + + + +--------+ --------+ + + !Dist CCA !69 !11 !60 ! ! !Dist CCA !80 ! 21 ! ! ! + +--------+--------+ + + + +--------+ --------+ + + !Prox ICA !56 !18 !60 ! ! !Prox ICA !79 ! 17 !60 ! ! + +--------+--------+ + + + +--------+ --------+ + + !Dist ICA !53 !19 !60 ! ! !Dist ICA !86 ! 33 !60 ! ! + +--------+--------+ + + + +--------+ --------+ + + !Prox ECA !96 ! !60 ! ! !Prox ECA !108 ! !60 ! ! + +--------+--------+ + + + +--------+ --------+ + + !Vertebral !52 ! !60 ! ! !Vertebral !44 ! !60 ! ! + +--------+--------+ + + + +--------+ --------+ + + !Subclavian !108 ! ! ! ! !Subclavian !123 ! ! ! ! + +--------+--------+ + + + +--------+ --------+ + + - There is antegrade vertebral flow noted on the right side. - There is antegrade verte bral flow noted on the left side. - Add'l Measurements:ICAPSV/CCAPSV 0.88.ICAEDV/CCAEDV 1.19. - Add'l Measurements:ICAPS V/CCAPSV 1.18.ICAEDV/CCAEDV 2.06. Impressions Left Impression There is a mild amount of smooth homogeneous plaque in the left internal carotid artery . Signature dtt: RUBY ROBLES dtd: 10/29/16 1600 Physician Self Edit
[2016-10-26 20:29] LABS: BASOPHIL % 0.3 %; EOSINOPHIL # 0.1 K/uL (0.0-0.5); EOSINOPHIL % 0.7 %; HEMATOCRIT 43.9 % (37.0-53.0); HEMOGLOBIN 16.2 g/dL (11.0-16.0); IMMATURE GRANULOCYTE % 0.4 %; LYMPHOCYTE # 1.2 K/uL (0.8-4.0); LYMPHOCYTE % 15.9 %; MCH 32.5 pg (27.0-34.0); MCHC 36.9 gm/dL (32.0-36.5); MCV 88.2 fl (83.0-98.0); MONOCYTE # 0.5 K/uL (0.0-1.0); MONOCYTE % 6.6 %; MPV 11.5 fl (9.4-12.4); NEUTROPHIL # (ANC) 5.9 K/uL (1.4-9.0); NEUTROPHIL % 76.1 %; NRBC % 0 /100WBC (0-0.00); PLATELET COUNT 149 K/uL (150-450); RBC 4.98 M/uL (3.50-5.50); WBC 7.7 K/uL (4.0-11.0)
[2016-10-26 20:42] LABS: INR - (THERAPEUTIC) 1.06 (0.92-1.07); PROTIME 11.1 SECONDS (9.8-11.4); PTT 29 SECONDS (25-32)
[2016-10-26 20:47] LABS: ALBUMIN 3.8 gm/dL (3.5-5.0); ANION GAP 12.1 (10.0-19.0); CALCIUM 8.2 mg/dL (8.5-10.5); CREATININE 1.2 mg/dL (0.6-1.3); MAGNESIUM 2.5 mg/dL (1.8-2.6); POTASSIUM 3.1 mMol/L (3.7-5.1); TOTAL BILIRUBIN 1.1 mg/dL (0.0-1.5); TOTAL PROTEIN 6.9 g/dL (6.0-8.4)
--- NOTE | 2016-10-27 02:55 | NUR ---
Patient comes in with complaints of swollen and Rt knee pain. He was in Dr. Gomez clinic for knee pain when his vitals showed HTN. Was told to come to the ER. Admitted for HTN crisis. BP 200's/100's. Low K+. T-TN high. No home medication and no allergies. Patient is A/Ox3. Remaining VSS. Lungs clear. Bowel sounds present last BM 10/26. Rt hand IV. No pain at this time. Dr. Iglesias to see. Will replace K and start on a nitro gtt for HTN.
--- NOTE | 2016-10-27 05:06 | NUR ---
Patient is A/O X3. Lung sounds are clear on RA. SBPs 202-225. SBA. HR 50-60s. Bilateral hand IVs. Nitro running at 25mcg titrate to keep SBP < 140. Heparin gtt at 900units/hr, next ptt hp at 0700. D5NS at 50ml/hr. Has recieved oral and IV potassium. Echo in am. Cardiology to see. Had xray of Rt knee, possible aspiration and ortho consult in am. Waiting on xray results. Bowel sounds present. Void per urinal. at bedside.
[2016-10-27 07:14] LABS: HEMATOCRIT 44.4 % (37.0-53.0); HEMOGLOBIN 16.2 g/dL (11.0-16.0); MCH 32.8 pg (27.0-34.0); MCHC 36.5 gm/dL (32.0-36.5); MCV 89.9 fl (83.0-98.0); RBC 4.94 M/uL (3.50-5.50); RDW-CV 13.2 % (11.9-14.6); WBC 10.1 K/uL (4.0-11.0)
[2016-10-27 07:30] LABS: ANION GAP 9.2 (10.0-19.0); CALCIUM 8.3 mg/dL (8.5-10.5); CREATININE 1.2 mg/dL (0.6-1.3); MAGNESIUM 2.4 mg/dL (1.8-2.6); POTASSIUM 3.2 mMol/L (3.7-5.1)
--- NOTE | 2016-10-27 11:24 | NUR ---
Introduced self and role of care management to patient and his . They live in [place]. He states that he is able to do all his own ADL's. His states that she can assist as needed. They plan on him returning home on discharge. They deny any needs at this time. Will continue to follow.
[2016-10-27 13:36] LABS: CPK 42 IU/L (35-332)
--- NOTE | 2016-10-27 17:38 | NUR ---
Significant Event: VSS AND RA. DR. COX WAS CONSULTED AND IS ADJUSTING BP MEDS; NITRO GTT WAS WEANED OFF AT 1152 AND SBPS HAVE REMAINED <160 (PER MD ORDER). HEPARIN GTT CONTINUES PER PROTOCOL WITH NEXT PTTHP AT 1999. TYLENOL X1 THIS AM FOR HOLLAND, WITH RELIEF. VOIDS WITH ADEQUATE UOP. AT BEDSIDE AND SUPPORTIVE OF NEEDS. REPOSITIONED Q2H. Follow up: CONTINUE PLAN OF CARE; KEEP NPO P MN FOR POSSIBLE STRESS TEST IN THE AM.
--- NOTE | 2016-10-28 05:45 | NUR ---
Significant Event: A&Ox3. PT is calm and cooperative. With the exception of a restless period during the night where BP was elevated, PT VS have been stable. SBP max 190. PRN hydralazine given and effective. Tmax 99.6. Follow up: Cardiac stress test this AM.
[2016-10-28 09:26] LABS: BASOPHIL % 0.2 %; EOSINOPHIL % 0.3 %; HEMATOCRIT 43.8 % (37.0-53.0); HEMOGLOBIN 15.8 g/dL (11.0-16.0); IMMATURE GRANULOCYTE % 0.2 %; LYMPHOCYTE # 1.1 K/uL (0.8-4.0); MCH 32.1 pg (27.0-34.0); MCHC 36.1 gm/dL (32.0-36.5); MONOCYTE # 0.9 K/uL (0.0-1.0); MONOCYTE % 9.4 %; MPV 11.3 fl (9.4-12.4); NEUTROPHIL # (ANC) 7.7 K/uL (1.4-9.0); NEUTROPHIL % 78.9 %; NRBC % 0 /100WBC (0-0.00); PLATELET COUNT 133 K/uL (150-450); RBC 4.92 M/uL (3.50-5.50); RDW-CV 13.2 % (11.9-14.6); WBC 9.8 K/uL (4.0-11.0)
[2016-10-28 09:44] LABS: ANION GAP 13.1 (10.0-19.0); CALCIUM 8.5 mg/dL (8.5-10.5); CREATININE 1.4 mg/dL (0.6-1.3); POTASSIUM 3.1 mMol/L (3.7-5.1)
--- NOTE | 2016-10-28 18:54 | NUR ---
Significant Event: SLIGHLTY D/O THIS AM TO TIME AND PLACE UPON AWAKING. SBP 150'S-190'S. HR'S 60'S-80'S. ROOM AIR. C/O HEADACHE BUT DENIED PAIN MEDS, LAVENDER GIVEN TO HELP WITH HOLLAND AND SLEEP. WAS ABLE TO REST THIS AFTERNOON. VERY CONCERNED ABOUT HIS REST. PIV TO RIGHT HAND SL'D AND LEFT HAND WITH D5NS @ 50 ML/HR. UP WITH SBA. Follow up: CONTINUE TO MONITOR BP. POSSIBLY HOME TOMORROW.
--- NOTE | 2016-10-29 05:43 | NUR ---
Significant Event: A/O x3. Afebrile. Confused/forgetful at times during night. VSS on RA. SBP 166-194. HR 50-60s. started nitro gtt, running @ 5mcg/hr. D5 ns @ 50/hr. Urinary retention around 0500, MD notified. Straight cath done with 500ml out. Follow up: Continue to monitor per plan of care.
[2016-10-29 06:01] LABS: BILIRUBIN URINE NEGATIVE (NEGATIVE); BLOOD URINE NEGATIVE /UL (NEGATIVE); COLOR URINE YELLOW (YELLOW); GLUCOSE URINE NEGATIVE (NEGATIVE); KETONE URINE 15 mg/dL (NEGATIVE); LEUKOCYTES URINE NEGATIVE /UL (NEGATIVE); NITRITE URINE NEGATIVE (NEGATIVE); PROTEIN URINE 15 mg/dL (NEGATIVE); TURBIDITY URINE CLEAR (CLEAR); UROBILINOGEN URINE NORMAL (NORMAL)
[2016-10-29 06:15] LABS: BACTERIA URINE NEGATIVE (NEGATIVE); EPITHELIAL URINE 0-2 #/HPF (NEGATIVE); MUCUS URINE 1+ (NEGATIVE); RBC URINE 0-2 #/HPF (NEGATIVE)
[2016-10-29 06:17] LABS: WBC CLUMPS URINE FEW (NEGATIVE)
[2016-10-29 07:33] LABS: ALBUMIN 3.3 gm/dL (3.5-5.0); ANION GAP 11.1 (10.0-19.0); CALCIUM 8.4 mg/dL (8.5-10.5); CREATININE 1.2 mg/dL (0.6-1.3); POTASSIUM 3.1 mMol/L (3.7-5.1); TOTAL PROTEIN 6.7 g/dL (6.0-8.4)
--- NOTE | 2016-10-29 15:06 | NUR ---
PT HAS BEEN SLIGHTLY CONFUSED A&O TO ORIENTATION QUESTIONS BUT DROWSY. C/O R SIDE OCCIPITAL HEAD PAIN. PT HAD 200ML EMESIS THIS AM. CT THIS AM NEG. MRI DONE SHOWED SIGNIFICANT ISCHEMIC POSTERIOR STROKE. NITRO GTT AT 20. IVF AT 50. HARKINS PLACED. AT BEDSIDE.
[2016-10-30 04:55] LABS: BASOPHIL % 0.1 %; EOSINOPHIL % 0.2 %; HEMATOCRIT 43.5 % (37.0-53.0); HEMOGLOBIN 15.6 g/dL (11.0-16.0); IMMATURE GRANULOCYTE % 0.3 %; LYMPHOCYTE # 0.7 K/uL (0.8-4.0); LYMPHOCYTE % 5.7 %; MCH 32.3 pg (27.0-34.0); MCHC 35.9 gm/dL (32.0-36.5); MCV 90.1 fl (83.0-98.0); MONOCYTE # 0.9 K/uL (0.0-1.0); MONOCYTE % 7.6 %; MPV 11.2 fl (9.4-12.4); NEUTROPHIL # (ANC) 10.5 K/uL (1.4-9.0); NEUTROPHIL % 86.1 %; NRBC % 0 /100WBC (0-0.00); PLATELET COUNT 153 K/uL (150-450); RBC 4.83 M/uL (3.50-5.50); RDW-CV 13.2 % (11.9-14.6); WBC 12.2 K/uL (4.0-11.0)
[2016-10-30 05:10] LABS: ALBUMIN 3.1 gm/dL (3.5-5.0); CALCIUM 8.3 mg/dL (8.5-10.5); CREATININE 1.1 mg/dL (0.6-1.3); TOTAL PROTEIN 6.4 g/dL (6.0-8.4)
--- NOTE | 2016-10-30 07:11 | NUR ---
Significant Event: A/Ox3 NIHSS 4. Denies numbness/tingling and follows commands. Burch catheter patent. Family at bedside. Hypertensive and cardine gtt started yesterday. SBP currently 130's and gtt delayed. Scheduled Lopressor held x1 per parameters. Morphine 1mg given twice for headache. Follow up:
--- NOTE | 2016-10-30 10:14 | NUR ---
A - CONSULT RECEIVED PER STROKE PROTOCOL. LOS. MRI - SIGNIFICANT ISCHEMI POSTERIOR STROKE. MADE NPO LAST NIGHT. ADMITTED FOR HTN. HT: 72" WT: 172# BMI: 23.6. LABS: K+ 3.O, GLU 134, ALB 3.1, WBC 12.2. MEDS: LISINOPRIL, D5NS, PROTONIX, NAUSEA. DIET: NPO. WAS CARDIAC NO CAFFEINE. INTAKE 75-100% x 3, SIPS x 1, NPO FOR PROCEDURES WHEN FIRST ADMITTED. NEEDS: [id number] KCAL (25-30 KCAL/G), 78-94 G PRO (1-1.2 G/KG), 2345 ML FLUID (30 ML/KG). D - INADEQUATE NUTRIENT INTAKE AT TIMES R/T NPO PROCEDURES AEB DIET ORDER HX SINCE ADMIT. I - GOAL FOR DIET TO BE RESTARTED W/IN 24-48 HRS. WILL ADD SUPPLEMENT DAILY WHEN DIET STARTED. WILL PROVIDE DIET ED APPROPRIATE PRIOR TO DC M/E - WILL MONITOR POC, DIET, INTAKE. F/U IN 3-5 DAYS.
--- NOTE | 2016-10-30 15:40 | NUR ---
Significant Event: Patient alert and oriented x3. Pupils 4mm, brisk. Does not follow commands consistently. Severe L) neglect noted. NIHSS= 6. Denies numbness/tingling. Reports intermittent headache. Bradycardic at times. Hypertensive, on cardene gtt to keep SBP around 160. All other VSS on 2L O2 per 's request. Burch patent and draining yellow urine. Last BM 10/28. Decreased appetite noted. IV to R) FA infusing D5NS at 50 mL/hr and cardene gtt. at bedside, needs lots of reassurance. Follow up:
--- NOTE | 2016-10-31 04:39 | NUR ---
Significant Event: A/Ox3 but can be drowsy at times. NIHSS 6. 2A pivot for transfers at this time. D5NS infusing at 50ml/hr to right forearm IV. Scheduled lopressor given x1 for hypertension. Burch catheter patent with 900 output. Passed swallow study yesterday. Tylenol given x2 for headache with relief noted. Family remains at the bedside. Follow up:
[2016-10-31 05:45] LABS: ALBUMIN 2.8 gm/dL (3.5-5.0); ANION GAP 9.4 (10.0-19.0); CALCIUM 8.1 mg/dL (8.5-10.5); CREATININE 1.1 mg/dL (0.6-1.3); POTASSIUM 3.4 mMol/L (3.7-5.1); TOTAL BILIRUBIN 0.9 mg/dL (0.0-1.5); TOTAL PROTEIN 5.8 g/dL (6.0-8.4)
--- NOTE | 2016-10-31 16:49 | NUR ---
Reviewed chart and spoke with Lorenza chargeback specialist nurse. Pt getting WILLIE tomorrow and then will be ready for inpt rehab on Monday. I called Kaleigh on inpt rehab and let her know, she will talk with care process manager tomorrow to see if ready to come on Monday.
--- NOTE | 2016-10-31 19:26 | NUR ---
Significant Event:VSS, SA-SB noted, rates pain 1-4/10 for headache/neck ache, relieved with Tylenol and icepack to neck. NIHSS 5, pt arouses easily, recognizes family. Voice is clear/soft spoken, minor aphasia. Slight L arm drift on first assessment, then no drift on 2nd & 3rd assessments. L side vision had partial gaze, visual field deficiet on first assessment, then shown improvement on 2/3 assessments. Transfers with 2 assists/GB/walker. Needs cueing. Burch intact for retention. IV D51/2NS at 50ml/hr in RFA. Follow up:NPO at midnight for WILLIE at 0800.
--- NOTE | 2016-11-01 05:01 | NUR ---
Significant Event: The patient is Alert and Oriented x2-3, forgetful at times of the month. Denies Numbness and Tingling. Moves all extremities spontaneously and to command. Up with 2 Assist, Gaitbelt and Walker. Complaints of a headache gave Tyenlol at 2110. NIHSS 10. Left visual field loss. Abrasions to legs. Burch draining yellow urine. NPO since midnight for WILLIE today. PIV to the right Forarm infusing D5NS at 50ml/hr. Started this shift on Miralax. Follow up: WILLIE today
[2016-11-01 05:59] LABS: ALBUMIN 2.9 gm/dL (3.5-5.0); ANION GAP 10.3 (10.0-19.0); CALCIUM 8.2 mg/dL (8.5-10.5); POTASSIUM 3.3 mMol/L (3.7-5.1); TOTAL BILIRUBIN 0.9 mg/dL (0.0-1.5); TOTAL PROTEIN 5.8 g/dL (6.0-8.4)
--- NOTE | 2016-11-01 13:38 | NUR ---
Kaleigh from [facility] In Rehab called and they will accept pt to GIRP on at 0900 if ready to come to them. Will let pt and charge nurse know, pt having WILLIE today.
--- NOTE | 2016-11-01 14:45 | NUR ---
Significant Event:PT IS AAOX3. FORGETFUL. REPEAT HIMSELF OR WHATEVER COMMANDS YOU ASK HIM TO DO. LEFT VISUAL EDWARDS LOSS. NIHSS 9. LEFT ARM AND LEG BOTH DRIFT. ATAXIA NOTED IN LEFT ARM. SLURRED, MUMBLED SPEECH. DROWSY ON AND OFF THIS SHIFT. HAD WILLIE THIS AM. ACTIVE BS. SHAHANA DRAINING YELLOW URINE. GAVE TYLENOL FOR HEADACHE RELIEF NOTED. UNABLE TO GIVE LOPRESSOR TODAY DUE TO HR IN 50'S. GAVE ONE EXTRA DOSE OF PRN HYDRALAZINE. 2A GB WALKER. IV R) FA RUNNING Follow up: AT BEDSIDE. GIRP WHEN READY?
--- NOTE | 2016-11-02 04:13 | NUR ---
Significant Event: PT ALERT, ORIENTED X3. NO NUMBNESS, TINGLING. C/O HEADACHE, TYLENOL GIVEN AT 2054. MOVES EXTREMITIES SPONTANEOUSLY AND TO COMMAND. LEFT UPPER AND LOWER EXTREMITY DRIFT, LEFT VISUAL FIELD LOSS. NIHSS 8. REPETITIVE SPEECH AT TIMES. HYPERTENSIVE, SBP 164-187. GOAL SBP<180. HR 60S. LUNGS CLEAR AND DIMINISHED. 96-97% 2L NC. HARKINS FOR RETENTION, 1200ML OUTPUT. NO BM. RIGHT FOREARM PIV SL'D. 2 ASSIST. AT BEDSIDE. Follow up:
[2016-11-02 05:52] LABS: ALBUMIN 2.9 gm/dL (3.5-5.0); ANION GAP 9.3 (10.0-19.0); CALCIUM 8.2 mg/dL (8.5-10.5); CREATININE 1.1 mg/dL (0.6-1.3); POTASSIUM 3.3 mMol/L (3.7-5.1)
[2016-11-02 05:53] LABS: TOTAL BILIRUBIN 1.3 mg/dL (0.0-1.5)
--- NOTE | 2016-11-02 09:54 | NUR ---
A - NUTRITION F/U. A/O X 3, FORGETFUL. K+ 3.3, GLU 106, BUN/THIRD HELPER 14/1.1, ALB 2.6. DIET: REGULAR W/ ENSURE CLEAR. INTAKE BITES TO 50%. EATING OMELET THIS AM, STATES APPETITE IS "ALRIGHT." STATES HE DRINKS SOME OF HIS ENSURE CLEAR AND WANT TO CONT. PLAN FOR GIRP TOMORROW. D - AT RISK W/ INADEQUATE ORAL INTAKE R/T DECREASED APPETITE AEB INTAKE RECORD. I - GOAL: 50% OR BETTER INTAKE. M/E - WILL CONT TO MONITOR AND ENCOURAGE INTAKE. F/U IN 3-5 DAYS.
--- NOTE | 2016-11-02 14:11 | NUR ---
Let patient know he gets to go to inpt rehab tomorrow at 0900, he is okay with that plan, his went up to rehab to look at facility so not in room when I visited patient. Left voicemail for Kaleigh on [facility] Inpt Re[facility] confirming plan.
--- NOTE | 2016-11-02 16:14 | NUR ---
Significant Event: Patient is oriented x3. Drowsy throughout the day. This is not unusual for patient since admission. Forgetful. Follows commands. Speech is soft and repeative. Flat affect. PERRLA. Left side is strong, but slightly weaker than right. Extremities are pink, warm, no edema. Denies N/T. HIHSS- 9. Lungs are clear and slightly diminished in the bases. No Cough. SR. Scratches to bilateral shins and arms. Bowel sounds active. Last BM was 10/28. Burch in place. 1075 out. Retention. at bedside. SBP Goal <180. PIV to left FA. Magnesium given. GIRP tomorrow! Follow up:
--- NOTE | 2016-11-03 05:46 | NUR ---
Significant Event: PATIENT THROUGHOUT SHIFT HAS BEEN ALERT AND ORIENTED X3-IS DROWSY AFTER ASSESSMENTS. FOLLOWS COMMANDS WITH CUEING. PERRLA. VSS. AFEBRILE. LEFT SIDE IS SLIGHTLY WEAKER THAN THE RIGHT. SB-SR; KEEP SBP LESS THAN 180-PRN HYDRALAZINE. ROOM AIR. REGULAR DIET-LAST BM 10/28-ACTIVE X4. HARKINS CATH. 2A GB/WALKER. PIV L) FA-SL'D. TYLENOL GIVEN FOR STIFFNESS. TAKES PILLS WHOLE WITH WATER. Follow up: GIRP TODAY
[2016-11-03 05:50] LABS: ALBUMIN 2.9 gm/dL (3.5-5.0); ANION GAP 9.3 (10.0-19.0); CALCIUM 7.8 mg/dL (8.5-10.5); CREATININE 1.1 mg/dL (0.6-1.3); POTASSIUM 3.3 mMol/L (3.7-5.1); TOTAL PROTEIN 5.9 g/dL (6.0-8.4)
--- NOTE | 2016-11-03 09:06 | NUR ---
Significant Event: a/o x 3. denies pain. no significant neurological changes- does have left visual deficit, left upper extremity drift and ataxia. Last BM 10/28. Patient/ refused miralax this am. heart rate sinus/sinus desire and am dose of metoprolol held for heart rate less than 60. allan cath discontinued this am. monitor for post allan DC void potassium 3.3. Orders for oral potassium this am. IV to left forearm saline locked. 2 PA with transfers. Plan to transfer to [facility] this am.
--- NOTE | 2016-11-03 09:52 | NUR ---
Discharged to [facility] In Rehab today.
== END 2016-11-03 09:30 | DRG 280 ==
LOC: GMED 19:38 → GPCU 22:21 → GICU 22:21
PROVIDERS: Emergency Medicine; Internal Medicine; Internal Medicine Interventional Cardiology; ADMIT Internal Medicine
PROC: B246ZZZ Ultrasonography of Right and Left Heart (ICD-10-PCS; principal; 2016-10-27)
PROC: 4A02XM4 Measurement of Cardiac Total Activity, External Approach (ICD-10-PCS; 2016-10-28)
PROC: 3E073KZ Introduction of Other Diagnostic Substance into Coronary Artery, Percutaneous Approach (ICD-10-PCS; 2016-10-28)
PROC: B246ZZ4 Ultrasonography of Right and Left Heart, Transesophageal (ICD-10-PCS; 2016-11-01)
DX: I16.1 Hypertensive emergency (principal); I21.4 Non-ST elevation (NSTEMI) myocardial infarction; I63.9 Cerebral infarction, unspecified; E87.6 Hypokalemia; I70.1 Atherosclerosis of renal artery; M06.9 Rheumatoid arthritis, unspecified; R74.8 Abnormal levels of other serum enzymes; I72.3 Aneurysm of iliac artery
CPT/HCPCS: A9270; A9500; J0360; J1644; J2060; J2270; J2405; J2785; J3475; J3480; J7040; J7042; J7050; Q9967

== ENCOUNTER 2016-11-03 09:51 | Inpatient (IN) | payer MEDICARE, OTHER ==
[~2016-11-03] VITALS: Ht 182.9 cm; Wt 78.7 kg
--- NOTE | ~2016-11-03 | CON ---
PATIENT'S NAME: ARNAUD LION [facility] AGE: 71 Y [address] ROOM: [address]24 [place], [place] [address] LOCATION: [facility] ADMIT DATE: 11/03/2016 Consultation DISCHARGE DATE: 11/25/2016 FAMILY PHYSICIAN: Oz Reddy MD ATTENDING PHYSICIAN: Uche Zuniga DATE OF CONSULTATION: 11/15/2016 REFERRING PHYSICIAN: Oz Reddy MD TEAM MEMBERS REPORTING: Dr. Zuniga; Kaleigh Mejia, social media job titles; rehab nursing team; Teagan Loo, PT; Mai Chiang, PT; Susan Luna, OT; Estephania Paz, Speech Therapy; Alesia Price, therapeutic rec; sister Akilah Pinzon, Pastoral Care. CURRENT STATUS: Arnaud is a 71-year-old man, admitted to our inpatient rehab unit following a stroke with left-sided neglect. The patient has good family support. The patient is continent of bowel and bladder. No skin or pain issues. The patient is on a regular diet. Currently, not at nutritional risk. He can complete all of his transfers at standby assistance. He can walk 150 feet with a front-wheeled walker at contact guard assistance. He can walk 19 stairs with one or two railings. His Rodriguez balance test was 35/56. He continues to be at a moderate risk for falling. They did try multiple items for walking. The patient is inconsistent with walking, but seems to be safest with a front-wheeled walker. He met 5/5 short-term PT goals. The patient can dress his lower body at contact guard assistance, grooming contact guard assistance for safety, bathing standby assistance. Toilet and shower transfers, contact guard assistance. Toileting, contact guard assistance, and feeding, standby assistance. The patient does occasionally hit doorways on his left side. His comprehension is max to minimal assistance. Language and expression, standby. Memory for path finding, moderate to max assistance. Problem solving, moderate to max assistance. Scanning to the left is max assistance. He is able to complete car transfers at contact guard assistance. He was able to provide directions to his home. Home safety evaluation was completed. The patient will require 24-hour supervision at home. DISCHARGE PLAN: The patient is receiving 3 hours of PT, OT, and speech Monday through Monday. The patient has daily rehab, nursing, and physiatry involvement as well as recreational therapy services. The patient has shown functional improvement and is progressing. Please see his plan of care for specific goals. Plan is for patient to discharge in approximately 7 to 10 days. Plan is for patient to discharge to home with his here in [place], [place]. PATIENT'S NAME: ARNAUD LION [facility] AGE: 71 Y [address] ROOM: [id number] [place] [id number] LOCATION: [facility] ADMIT DATE: 11/03/2016 Consultation DISCHARGE DATE: 11/25/2016 FAMILY PHYSICIAN: Oz Reddy MD ATTENDING PHYSICIAN: Uche Zuniga KALEIGH MEJIA FOR UCHE ZUNIGA MD TD/modl /[id number] d: 12/05/162051 t: 12/19/16 1129, CONSULTATION REPORT
--- NOTE | ~2016-11-03 | CON ---
PATIENT'S NAME: ARNAUD LION [facility] AGE: 71 Y [address] ROOM: [address] [place], [place] [address] LOCATION: [facility] ADMIT DATE: 11/03/2016 Consultation DISCHARGE DATE: FAMILY PHYSICIAN: BREANNA PEARCE MD ATTENDING PHYSICIAN: Uche Zuniga DATE OF CONSULTATION: 11/08/2016 REFERRING PHYSICIAN: MARVA HO MD TEAM MEMBERS REPORTING: Include Dr. Zuniga; Kaleigh Mejia. tray room worker; Cecille Weber RN. Teagan Loo, PT; Mai Chiang, PT; Susan Luna, OT; Estephania Paz, Speech Therapy; Alesia Price, therapeutic rec. CURRENT STATUS: Isha Elmore is a 71-year-old man, admitted to our inpatient rehab unit on November 03, 2016, following a CVA. The patient has a history of hypertension, hypokalemia, renal artery stenosis, and troponin elevation. The patient is continent of bowel and bladder. No skin or pain issues. A CT scan was ordered on this date. Dr. Trammell also ordered a renal ultrasound and Dr. Caceres ordered some labs. The patient is on a regular diet, not currently at nutritional risk. He can transfer sit to supine and supine to sit at standby, sit to stand and stand to sit, and bed to chair and chair to bed, contact guard assistance. He can walk 125 feet test, 150 feet with a front-wheeled walker at contact guard assistance. He is not as quick to respond. He does need physical assist to do a left hand turn delayed processing. He can climb 4 stairs with 2 railings at contact guard assistance. His goals have been set for standby to mod I. The patient can dress his upper body at max, lower body min, grooming standby, bathing contact guard assistance toilet transfers, contact guard assistance; toileting moderate assistance; shower transfers, minimal assistance of two, feeding is standby assistance with verbal cues. He does have an inattention on the left side, especially the left lower quadrant. He does have impaired balance. His pinch strength is below normal. His goals have been set for standby comprehension is at max assistance. Language and expression, minimal assistance with cues; memory moderate to max and problem solving, moderate to max. The patient does likes prayers from pastoral care. DISCHARGE PLAN: The patient is receiving 3 hours of PT, OT, and speech Monday through Monday. The patient has daily rehab, nursing, and physiatry involvement as well as therapeutic recreational services four four days per week. The patient has shown functional improvement and is progressing. Please see his plan of care for specific goals. Plan is for the patient to discharge in approximately 3 weeks. The patient's goal is to be able to return to home with his here in [place]. PATIENT'S NAME: ARNAUD LION [facility] AGE: 71 Y [address] ROOM: [place] [address] LOCATION: [facility] ADMIT DATE: 11/03/2016 Consultation DISCHARGE DATE: FAMILY PHYSICIAN: BREANNA PEARCE MD ATTENDING PHYSICIAN: Uche Zuniga KALEIGH MEJIA FOR UCHE ZUNIGA MD TD/modl /[id number] d: 11/13/161805 t: 12/19/16 1126, CONSULTATION REPORT
--- NOTE | ~2016-11-03 | CON ---
PATIENT'S NAME: ARNAUD LION [facility] AGE: 71 Y [address] ROOM: [address] [place], [place] [address] LOCATION: [facility] ADMIT DATE: 11/03/2016 Consultation DISCHARGE DATE: FAMILY PHYSICIAN: BREANNA PEARCE MD ATTENDING PHYSICIAN: Uche Nails DATE OF CONSULTATION: 11/08/2016 REFERRING PHYSICIAN: MARVA HO MD REFERRING PHYSICIAN: Dr. Saucedo. REASON FOR CONSULTATION: Uncontrolled hypertension with renal artery stenosis. HISTORY OF PRESENT ILLNESS: A 71-year-old male patient with history of hypertension, chronically noncompliant, who presented to the clinic initially with knee swelling and some weakness, found to have significantly elevated blood pressure, was sent to the ER. Subsequently, got admitted for blood pressure control, however, noted to have significant infarction on the right posterior cerebral artery on MRI with diffusion weighted imaging, currently undergoing rehabilitation in our inpatient rehabilitation unit. On the CT scan, the patient was noted to have a significant right renal artery stenosis. Currently, he is on 5 different antihypertensive medications. Blood pressure is still in the range of 170 to 180 systolic, and we are planning to manage renal artery stenosis either by stenting or by medication adjustment. Nephrology consultation has been called for above-mentioned reason. During my evaluation, the patient is completely asymptomatic at this point. Denied any chest pain, cough, shortness of breath, orthopnea, or PND. No urinary symptoms including dysuria, urgency, hesitancy, or nocturia. Currently noted to be on Aldactone, hydralazine, hydrochlorothiazide, Coreg, and lisinopril. He has mentioned that he has been noncompliant for long time and never checked his blood pressure in the past, and the renal artery stenosis was diagnosed on this admission. PAST MEDICAL HISTORY: Hypertension. He does not take home medication at home. ALLERGIES: NONE. HOME MEDICATIONS: None. REVIEW OF SYSTEMS: GENERAL: No fever. No chills or rigor. HEENT: No sore throat. No sinus congestion. CVS: No chest pain. No exertional shortness of breath. No leg swelling. RESPIRATORY: No shortness of breath. No cough. No wheezing. GENITOURINARY: No pain with urination. No increased frequency. No nocturia. GASTROINTESTINAL: No abdominal pain. No abdominal distention. No nausea or vomiting. NEUROLOGIC: No weakness. No seizures. SKIN: No rash. No itching. ALLERGIES: No seasonal allergy. No hayfever. ENDOCRINE: No heat intolerance. No cold intolerance. PSYCHIATRIC: No sadness. No crying spells. No history of panic attack.PATIENT'S NAME: ARNAUD LION [facility] AGE: 71 Y [address] ROOM: [place] [address] LOCATION: [facility] ADMIT DATE: 11/03/2016 Consultation DISCHARGE DATE: FAMILY PHYSICIAN: BREANNA PEARCE MD ATTENDING PHYSICIAN: Uche Nails SOCIAL HISTORY: Denied any alcohol or illicit drug use. Occasional smoker. PAST SURGICAL HISTORY: Left wrist surgery in the past, tonsillectomy. FAMILY HISTORY: Father from old age from a cause that he forgot. Mother had some heart problem but does not know details. PHYSICAL EXAMINATION: VITAL SIGNS: Blood pressure 180 over 80 to 100, respiratory rate 16 to 18, saturation 96% on room air, temperature 98.3 degrees Fahrenheit, heart rate 55 to 60. GENERAL: Not in apparent distress. HEAD: Moist mucous membranes. Bilateral PERRLA, EOMI. NECK: No JVD, thyromegaly or lymphadenopathy. CVS: S1 and S2 normal, regular rate and rhythm. No murmur, rub, gallop. CHEST: Bilateral air entry equal. No wheeze or rales. ABDOMEN: Soft, nontender, nondistended. Bowel sounds present. EXTREMITIES: No cyanosis, clubbing, jaundice. No dependent edema. MUSCULOSKELETAL: No limitation of range of motion. SKIN: No pallor, cyanosis, icterus. EXECUTIVE RELATIONS SPECIALIST: Alert and oriented x3. No gross findings. LABORATORY DATA: No recent lab after 11/03/2016. On 11/03/2016, the CBC shows hemoglobin of 15.5, WBC 11.5, platelet 180. Chemistry which has been done on 11/03/2016 again sodium 139, potassium 3.8, chloride 104, bicarbonate 30, BUN 19, creatinine 1.3 up from 1 on 11/01/2016, glucose 104, calcium 8.7. Albumin 3.3. Lipid panel done on 10/29/2016, cholesterol 135, triglycerides 64, HDL 41, VLDL 12, LDL 82. Urinalysis done on 11/03/2016, specific gravity 1.010, pH of 6.5, LE 2+, negative nitrite, protein, glucose, ketone, bilirubin, blood. Microscopy shows 10-20 wbc's, 2-5 rbc's, negative for epithelial cells, and moderate bacteria. ASSESSMENT: 1. Renal artery stenosis on the right side on CT angio. 2. Uncontrolled hypertension despite on 5 different antihypertensive medications. 3. Recent right COMMUNICATIONS PROFESSIONAL stroke, currently undergoing rehab.PATIENT'S NAME: ARNAUD LION [facility] AGE: 71 Y [address] ROOM: [id number] [place] [id number] LOCATION: [facility] ADMIT DATE: 11/03/2016 Consultation DISCHARGE DATE: FAMILY PHYSICIAN: BREANNA PEARCE MD ATTENDING PHYSICIAN: Uche Nails PLAN: 1. The patient has no significant history of pulmonary hypertension, heart failure, repeated pulmonary edema. We do not see in case of atherosclerotic renal artery disease in absence of those complications or high risk feature. Renal artery stenting is better than medication control. Currently on 5 different medications, but many of them are not at max dose. The creatinine has bumped up slightly from 1 to 1.3. We will repeat a renal panel tomorrow. We will switch hydrochlorothiazide to chlorthalidone and go up on the dose of lisinopril to 20 mg b.i.d. instead of 20 mg daily. We will continue Aldactone, hydralazine, and Coreg at the current doses. We will closely monitor the blood pressure and adjust medication as necessary. 2. Regarding acute kidney injury, the patient had some bump in creatinine after addition of the antihypertensive medication and possibly diuretic. Creatinine 1 to 1.1, possibly spuriously low with maybe some component of volume overload. Although we have not seen the patient at that time, but now the patient is currently euvolemic and doing well, and with Aldactone and hydrochlorothiazide, his creatinine has bumped up to 1.3. We will closely monitor the patient's renal function. If continues to go up, then we may need to consider stopping one of the antihypertensive medication, especially the RAAS blockers to keep the creatinine in an acceptable range. Please send a UA and urine lytes. We do not see any reason to do an ultrasound again with Doppler because CTA had been done recently. The patient has been explained about the management plan and agree with that. Notably, the patient has also been offered renal artery stenting by [facility], however, they declined that option. Thank you for allowing me to participate in this patient's care. We will closely monitor the patient's progress along with you. ABHISEKH BENTLEY CUETO MD /modl /[id number] d: 11/10/16 0045 t: 11/19/16 0931, CONSULTATION REPORT
--- NOTE | ~2016-11-03 | DS ---
PATIENT'S NAME: ARNAUD LION [facility] AGE: 71 Y [address] ROOM: [address] [place], [place] [address] LOCATION: [facility] ADMIT DATE: 11/03/2016 Discharge Summary DISCHARGE DATE: 11/25/2016 FAMILY PHYSICIAN: Oz Reddy MD ATTENDING PHYSICIAN: Uche Zuniga HOSPITAL COURSE: This 71-year-old gentleman was admitted to rehab unit at [facility] in [place], [place], on 11/03/2016 and is going to be discharged to home on 11/25/2016. 1. He was admitted with unstable gait. 2. Dependent activities of daily and self-care. 3. Status post extensive ischemic stroke involving the right cerebral hemisphere with left-sided weakness and confusion, improved. He is at the present time doing better, alert and oriented. Vital signs are as follows. Today blood pressure is 174/82, temperature is 98.3, pulse 71, and respiration rate 16. His CMS on 11/23 was sodium 142, potassium 3.8, chloride 106, CO2 of 30, BUN 33, creatinine 1.5, and glucose 97. He can ambulate 200 feet, time 2 in a.m., and with four-wheeled walker and 300 feet, time 1 p.m., almost at modified independence. We will get him to start on outpatient basis PT, OT, and Speech 3 times per day for 4 weeks. I will see him thereafter. He has to follow with his family physician as soon as possible and during his stay with us, he was seen by the lending activities supervisor, Dr. Caceres and the stone gang sawyer, Dr. Margarita Cespedes. He will follow with CT scan of chest 6 months for pulmonary nodule. 30 days monitor post-discharge per Dr. Al, stone gang sawyer. He is at the present time on the following medications. 1. Norvasc 10 mg p.o. daily, hold if systolic blood pressure below 100. 2. Aspirin 81 mg p.o. daily for 30 days, hold the medication. 3. Coreg 12.5 mg p.o. twice daily with meals. 4. Chlorthalidone 25 mg p.o. daily. 5. Alprazolam 25 mg 3 times daily. 6. Lisinopril 20 mg twice daily p.o. 7. Protonix 40 mg p.o. daily. 8. MiraLAX 17 g p.o. daily as needed. 9. Crestor 40 mg p.o. daily. 10. Aldactone 50 mg p.o. daily. 11. Flomax 0.4 mg twice daily. 12. Tylenol 650 q.6 hours, do not exceed acetaminophen 4 g every 24 hours, PATIENT'S NAME: ARNAUD LION [facility] AGE: 71 Y [address] ROOM: [place] [address] LOCATION: [facility] ADMIT DATE: 11/03/2016 Discharge Summary DISCHARGE DATE: 11/25/2016 FAMILY PHYSICIAN: Oz Reddy MD ATTENDING PHYSICIAN: Uche Zuniga give 36 of them. 13. Milk of magnesia 30 mL p.o. daily. 14. Topical Neosporin as needed one tube. FINAL DIAGNOSES: 1. Unstable gait. 2. Dependent activities of daily and self-care. 3. Status post extensive ischemic stroke involving the cerebral brain with left-sided weakness with confusion, improving. 4. Hypertension. 5. Dyslipidemia. 6. Benign prostatic hypertrophy. 7. History of hernia repair. 8. Renal artery stenosis, right side. 9. Troponin elevation, was followed. 10. Pulmonary nodule, is followed. The patient is not to drive and/or operate any mechanical or electrical device until he is re-evaluated. He should avoid drinking, please. PT, OT, and Speech outpatient 3 times per week for the coming 4 weeks. I will see him thereafter. All the above was explained to him and his in detail. They verbalized understanding and agreement with plan of care. UCHE ZUNIGA MD WMS/modl /[id number] d: 11/24/16 1402 t: 11/24/16 1639, DISCHARGE SUMMARY
--- NOTE | ~2016-11-03 | CON ---
PATIENT'S NAME: ARNAUD LION [facility] AGE: 71 Y [address] ROOM: [address] [place], [place] [address] LOCATION: [facility] ADMIT DATE: 11/03/2016 Consultation DISCHARGE DATE: 11/25/2016 FAMILY PHYSICIAN: Oz Reddy MD ATTENDING PHYSICIAN: Uche Zuniga REFERRING PHYSICIAN: Oz Reddy MD TEAM MEMBERS REPORTING: Dr. Zuniga; Kaleigh Mejia, social sciences chair; inpatient rehab nursing staff; Teagan Loo, PT; Mai Chiang, PT; Susan Luna, OT; Estephania Paz, Speech Therapy; Alesia Price, therapeutic rec; and sister Akilah Mai, Pastoral Care. CURRENT STATUS: Arnaud is a 71-year-old man admitted to our inpatient rehab unit following a CVA. The patient is currently on a regular diet. Intake is good. He can transfer sit to supine and supine to sit independently; sit to stand and stand to sit, mod I, bed to chair and chair to bed, mod I with cues. He can walk 150 feet with a front-wheeled walker at standby. He can climb 12 stairs with one railing at standby assistance to mod I. The patient is having a little bit of difficulty with depth perception. The patient has met 5/9 long-term PT goals. The patient can dress his upper body at minimal assistance, lower body contact, guard assistance; grooming and bathing standby, toilet and shower transfers, contact guard assistance; and feeding, standby. Home safety evaluation did go well. He has met 4/13 long-term OT goals. The patient's comprehension is moderate to minimal assistance. Language and expression, moderate to minimal assistance. Memory, minimal to standby assistance; and problem solving, minimal to standby assistance. Car transfers are currently at standby assistance to contact guard assistance. DISCHARGE PLAN: The patient is receiving 3 hours of PT, OT, and speech Monday through Monday. The patient has daily rehab, nursing, and physiatry involvement as well as therapeutic recreational services. The patient has shown functional improvement and is progressing. Please see his plan of care for specific goals. Plan is for the patient to discharge on Friday, November 25, 2016. The patient will go home with outpatient therapy services. KALEIGH MEJIA FOR UCHE ZUNIGA MD TD/modl PATIENT'S NAME: ARNAUD LION [facility] AGE: 71 Y [address] ROOM: [place] [address] LOCATION: [facility] ADMIT DATE: 11/03/2016 Consultation DISCHARGE DATE: 11/25/2016 FAMILY PHYSICIAN: Oz Reddy MD ATTENDING PHYSICIAN: Uche Zuniga /[id number] d: 12/06/16 0007 t: 12/19/16 1132, CONSULTATION REPORT
--- NOTE | ~2016-11-03 | HP ---
PATIENT'S NAME: ARNAUD LION [facility] AGE: 71 Y [address] ROOM: [address] [place], [place] [address] LOCATION: [facility] ADMIT DATE: 11/03/2016 History & Physical DISCHARGE DATE: 11/25/2016 FAMILY PHYSICIAN: Oz Reddy MD ATTENDING PHYSICIAN: Uche Nails MEDICATIONS CORRECTED PER DR. NAILS / 11-28-2016 / [place] DATE OF SERVICE: HISTORY OF PRESENT ILLNESS: This 71-year-old gentleman was admitted for continuous medical treatment and intensive rehabilitation. 1. Unstable gait. 2. Dependent in activities of daily self-care. 3. Status post right posterior cerebral extensive ischemic stroke leading to unstable gait and dependent in activities of daily self-care with neglect of the left side, at risk of falling. He is admitted for continuous medical treatment and intensive rehabilitation and at the present time, he is alert, oriented. VITAL SIGNS: On admission were as follows: Blood pressure 159/84, temperature 98.0, pulse 64, respiration rate 20. He is 6 feet tall, weighs 77.7 kg. ALLERGIES: NO REPORTED ALLERGIES TO MEDICATIONS. MEDICATIONS: He is on the following medications: 1. Pneumococcal polysaccharide, (PNU-INUME, Pneumovax) as directed. 2. Norvasc 10 mg p.o. daily, hold if systolic blood pressure is below to 100. 3. Aspirin 81 mg p.o. daily. 4. Lipitor 80 mg p.o. daily. 5. Apresoline 50 mg p.o. daily. 6. Lisinopril 20 mg p.o. twice daily. 7. Lopressor 50 mg p.o. b.i.d. 8. Protonix 40 mg p.o. daily at 0700 hours. 9. MiraLax 17 g p.o. daily. 10. Flomax 0.4 mg p.o. twice daily. 11. Sodium chloride IV 0.9% 250 per protocol. 12. Tylenol 650 q.6 hours, not to exceed acetaminophen 4 g q.24 hours. 13. Apresoline 25 mg q.4-6 hours as needed p.r.n. 14. Zofran 4 mg IV or p.o. every 8 hours as needed. 15. Potassium chloride 60 meq p.o. once daily. 16. Spironolactone 25 mg p.o. on yesterday, written as now and daily. PATIENT'S NAME: ARNAUD LION [facility] AGE: 71 Y [address] ROOM: [address] [place], [place] [address] LOCATION: [facility] ADMIT DATE: 11/03/2016 History & Physical DISCHARGE DATE: 11/25/2016 FAMILY PHYSICIAN: Oz Reddy MD ATTENDING PHYSICIAN: Uche Nails PAST MEDICAL HISTORY: Of significant: 1. History of hypertension. 2. Hypokalemia. 3. Renal artery stenosis. 4. Troponin elevation and was followed on initial admission. PAST SURGICAL HISTORY: 1. He also has left wrist surgery. 2. Status post tonsillectomy. We will put on intensive PT, OT, speech 3 hours per day, 15 hours per week for the coming 2 weeks or so, aiming to discharge on modified independent. I saw this gentleman on initial evaluation and it was on 10/30 and recommended 2-3 weeks of intensive rehab. On re-evaluation on 11/03/2016, I recommended about 2 weeks at least of intensive rehabilitation aiming to discharge modified independent. LABORATORY AND DIAGNOSTIC DATA: Today and on 11/04/2016, his lab work was as follows: CBC: WBC 11.5, RBC 4.91, hemoglobin 15.5, hematocrit 44.0, and platelets 180. CMS: Sodium 139, potassium 3.8, chloride 104, CO2 30, BUN 19, creatinine 1.3, and glucose 104. UA is practically within normal limits with moderate bacteria, however, RBC are 2-5, we will watch. Prealbumin 25. I did explain to the patient plan of care in detail and to his . They verbalized understanding and agreement with plan of care. We are aiming at modified independent upon discharge and follow on outpatient basis. UCHE NAILS MD WMS/modl /[id number] MEDICATIONS CORRECTED PER DR. NAILS / 11-28-2016 / KLD D: [id number] T: [id number] HISTORY & PHYSICAL
[2016-11-03 11:31] LABS: HEMOGLOBIN 15.5 g/dL (11.0-16.0); MCH 31.6 pg (27.0-34.0); MCHC 35.2 gm/dL (32.0-36.5); MCV 89.6 fl (83.0-98.0); MPV 11.1 fl (9.4-12.4); RBC 4.91 M/uL (3.50-5.50); RDW-CV 12.9 % (11.9-14.6); WBC 11.5 K/uL (4.0-11.0)
[2016-11-03 11:43] LABS: ALBUMIN 3.3 gm/dL (3.5-5.0); ANION GAP 8.8 (10.0-19.0); CALCIUM 8.7 mg/dL (8.5-10.5); CREATININE 1.3 mg/dL (0.6-1.3); POTASSIUM 3.8 mMol/L (3.7-5.1); TOTAL BILIRUBIN 0.9 mg/dL (0.0-1.5); TOTAL PROTEIN 6.9 g/dL (6.0-8.4)
--- NOTE | 2016-11-03 14:22 | NUR ---
Significant Event:Pt admitted to ICU approx. the 26 of October, MRI showed he had Ischemic stroke, affecting Left upper and lower ext, weakness, but can move without difficulty. He had originally gone to the MD for Kneed pain. Pt has hx of hypertension, Malasia, and Renal artery stenosis. Alert and orientated x 3 with some drowsiness, responds slowly to questions. Pt also has some left side deficiet with vision, wears glasses to read. Reports reported no pain, but pt has had a headache since started therapy, Tylenol given. Last BM ws 10/28/16. Plan to give MOM this afternoon, bowel sounds present all 4 quads. No noted edema, in extremities. Pt had allan till they removed it just before he was transfered, staff said it was due to urinary retention, pt's said he does not have urinary retention. Have not recieved admission UA as of this time. Transfers with 2 assist, walker\gait belt. Monitor BP, and note meds for control. Potassium low, administered K 6 tabs. Likes meds 1 @ a time, and likes ok from before he takes them. Divina had refused Miralax this am on previous unit, explained to her last time pt has BM, she responded, he did not have any problems @ home, so she plans to help push the fruits as he likes fresh fruit and veg. Pt reported a little nervous about move, and anxious. Pt also reports they tell him he talks with low volumn which is different then before the stroke, and his tells him to be nice, because he can respond sarcastically, he reports he does not mean to sound mean. Pt has been pleasant and answers admission questions well. Divina attentive and supportive to pt, plans to stay tonoc, reports she can't stay all the time, but will sometimes. Pt has NKA. Follow up:pain control, admission ua, measture for JONATHON maldonado, monitor BP/meds, K follow up per labs.
--- NOTE | 2016-11-03 16:31 | NUR ---
Significant Event: Patient transferred from ICU/NTU to [facility] at 0945 per w/c accompanied by this nurse and transport staff. JOHNT done with this nurse and receiving nurse
--- NOTE | 2016-11-03 18:36 | NUR ---
Significant Event:Pt attended therapy as scheduled. Pt did have large BM, this afternoon, and voided sml amt in hat, note sure if some went in the toilet. Pt reported to therapist while @ therapy that he had a headache, pt given Tylenol, after therapy returned to bed, and he slept till getting him up for evening meal. No complaints of headache @ that time, but was still a little drowsy. Assissted with meal @ dining room. Pt brought back from dining room, complained of headache, holding head, discussed during rounds, On coming nurse present. Divina reported pt has had this headache even on previous unit, stated he usually reports it as pressure in his head, and it feels better when he holds his head, or his holds his head. reported all the MD's have known of this, and nothing has changed, she reported the therapist physical told her initially his blood pressure may have been brought down to fast. Follow up:pain control, monitor BP, monitor @ meals, Monitor amt voided due to resent allan removal, and monitor constipation.
[2016-11-03 18:56] LABS: BILIRUBIN URINE NEGATIVE (NEGATIVE); BLOOD URINE NEGATIVE /UL (NEGATIVE); COLOR URINE YELLOW (YELLOW); GLUCOSE URINE NEGATIVE (NEGATIVE); KETONE URINE NEGATIVE (NEGATIVE); LEUKOCYTES URINE 100 /UL (NEGATIVE); NITRITE URINE NEGATIVE (NEGATIVE); PH URINE 6.5 (4.0-8.0); PROTEIN URINE NEGATIVE (NEGATIVE); TURBIDITY URINE CLEAR (CLEAR); UROBILINOGEN URINE 1 mg/dL (NORMAL)
[2016-11-03 19:11] LABS: EPITHELIAL URINE NEGATIVE #/HPF (NEGATIVE)
[2016-11-03 19:12] LABS: BACTERIA URINE MODERATE (NEGATIVE)
--- NOTE | 2016-11-04 04:09 | NUR ---
Significant Event: Patient is alert and forgetful at times. Was hard to assess orientation, but reports he is oriented to person and place but not to time. Patient is slow to answer questions and hard to get an answer at times. reports he is modest and has anxiety when nursing tries to assist to void and do mari cares. Is up with 1-2 assist stand pivot with walker. Takes meds whole with water. Was fed supper last night ate 25% and c/o he ate to much. Not drinking much liquids. C/O of pressure headaches and will hold his head. Was asked numerous times if he needed anything for pain and denied the need. Very little left sided weakness but does have a left visual deficit. Will lean his head to the right when up. reports thay dont watch much TV and asks that we do not turn on the TV. Admission UA has been aquired. Voided 900 mls early evening and has not voided since then. Reported yesterday he had a BM during the day. before that he had not had a BM since the . Follow up:
--- NOTE | 2016-11-04 09:00 | NUR ---
D: Therapeutic Recreation Initial Assessment on the 11/04/16. I: Patient seen for 2 units at 900 to begin initial evaluation. Pt has dx of CVA. R: [place]: 3-4 Living with: Spouses name: Divina # of children: 4 Driving: yes, spouse does drive Ambulating: I Equipment: N/A Hand Dominance: Right Antenna Specialist strength: L) side affect Eye sight: glasses, L) side neglect/cut? Reading ability: N/T Hearing: no problem Speech: word finding Cognition: impaired Comprehension: poor Following directions: at times Initiating: at times Eye contact: poor Affect: flat COMMUNITY INVOLVEMENT: grocery shopping, out to eat, movies, temple, Library LEISURE INTERESTS: i-pad, auto books, watch hallmark movies, with spouse, dog - concrete layer, read magazine (farm and home) work on cars Patient is referred by medical staff for treatment and evaluation in the following areas: Community Skills, Functional Leisure Skills, Participation, Leisure Education/Behaviors, Family Education, Cognitive, Emotional. Information obtained: Interview, Chart Review, Observation, other. BARRIERS TO LEISURE: Social, Financial, Physical, Lifestyle (? depression) Transportation Patient determined to be: APPROPRIATE FOR THERAPEUTIC RECREATION ASSESSMENT. TREATMENT WILL INCLUDE: Community living skills training Functional leisure development Physical skills development Cognitive skills development Social skills development Leisure education Emotional/behavioral adaptation Family education Community resources/packet TARGET EQUIPMENT/INFORMATION: Parking Permit TO ASSESS NEED Community Resources Energy conservation in community setting Van/Service/Taxi Scrip Adapted Leisure Equipment Stress management/Relaxation techniques Functional car transfers Leisure Education Behaviors: Attitude, Awareness, Participation. Patient functional skills level and potential: Guarded, pt demonstrates poor mobility and concerns for coping. Patient oriented ot TR services on Rehab unit. Pt/family provided input into goals setting and plan of care. Pt's goal is to return home. P: Target date set with personal goals established. Will continue with POC focusing on pt/family training and education. For additional information please see Nursing Data Base, PT, OT, CM, ST, initial assessments to [facility] and Interdisciplinary Assessments.
--- NOTE | 2016-11-04 16:20 | NUR ---
Significant Event: Alert and oriented X 3. VSS. Shower this am with therapy. Up with 1 - 2 assist, needs cues. Ambulates to toilet, wants his privacy. Speaks softly and at times is slow at responding. Holds head, but denies any headache. Patient reported 1 time of a sharp shoot of pain across the right temporal. Continue to monitor and administer tylenol. at bedside throughout the shift. feeds patient. Pleasant and cooperative with cares. Follow up:
--- NOTE | 2016-11-05 03:48 | NUR ---
Pt alert however needs lots of cueing. up with 1 assist gait belt walker. does well with transfers again just needs lots of encouragment and cueing. vss during shift. afebrile. lung sounds clear, bowel sounds activex4. pt takes medication whole with no complication noted. contient of bowel and bladder. bm this evening. helps with most of cares. pt is private about nurses helping with mari cares and prefers that helps him. teds removed at hs. iv saline locked to left forearm. bed/chair alarm in place at all times.
--- NOTE | 2016-11-05 13:35 | NUR ---
Significant Event: Alert and oriented x 3. UP with 1A walker and gait belt. Needs lots of cues. VSS. Denies pain. Slow to respond. Meds whole with water. Continent of bowel and bladder. Last BM 11/05. Patient likes his privacy when in the bathroom. IV saline locked to left forearm. Alarms. Requests daily showers. in room. Follow up: Alarms, daily shower
--- NOTE | 2016-11-06 02:52 | NUR ---
Significant Event: Patient is alert and oriented x 3. Forgetful. Needs verbal cues. Left sided weakness. VSS on room air. Up with 1 assist, walker, and gaitbelt. Denies any pain. at the bedside. Left forearm IV, saline locked. Takes meds whole with water. Patient is pleasant and cooperative with cares. Follow up:
--- NOTE | 2016-11-06 15:16 | NUR ---
Significant Event: Alert and oriented x 3. Forgetful. Up with 1A walker and gait belt. Alarms. VSS. Denies pain. Slow to respond at times. Meds whole with water. Last BM 11/05. Continent of bowel and bladder. Likes his privacy when in the bathroom. IV to L) forearm saline locked. Daily shower. L) weak. New order for cymbalta ordered today. Patient and say he will not take any new meds that the doctor has not talked to them about first. And that he will not take an antidepressant. at bedside. Follow up:
--- NOTE | 2016-11-07 03:17 | NUR ---
Alert and oriented but forgetful. stays at bedside. Up with one assits, gaitbelt and walker. Lt sided visual deficit. Please place table on the rt side when in chair and at night. Slow to respond, but also states he has been this way for some time, always thinks before he answers. Lt felt sided weakness, but more visual and cognitive deficit. Denies pain. Requests to hole the Cymbalta until Dr Cavazos speaks to them about why he ordered it, side effects, etc. Requests no med changes unless they are discussed with pt and his first.
--- NOTE | 2016-11-07 15:27 | NUR ---
Is A/O.Forgetful.SL that was in Lt.forearm was dc'd. Lt.eye sight was affected from stroke.Is slow in responding & speaking.Up with walker & 1 assist.States has just really been exhausted today.Lt.sided weakness. has been here alot.
--- NOTE | 2016-11-08 03:24 | NUR ---
Significant Event: PATIENT IS ORIENTED X3. FLAT AFFECT. ANSWERS QUESTIONS APPROPRIATELY BUT LACKS EYE CONTACT. CAN BE FORGETFUL. NEEDS DIRECTION WITH AMBULATION. UP X1 WITH GAIT BELT AND WALKER. SPOUSE AT BEDSIDE. SLIGHT LEFT SIDED WEAKNESS. DENIES NUMBNESS OR TINGLING. LAST BM ON THE . Follow up:
--- NOTE | 2016-11-08 08:57 | NUR ---
PT SCREENED D/T LOS. EST NEEDS: [id number] KCALS, 78-94 GM PROTEIN, 1 ML/KCAL FLUIDS. PO 75-100%. WT IS STABLE. BASED ON CURRENT DATA, NO NUTRITION-RELATED DX IDENTIFIED. WILL ASSIST NEEDED.
--- NOTE | 2016-11-08 15:36 | NUR ---
Significant event: Patient is oriented x3. VSS. on room air. Pt is slow in responding to questions. Is one assist and walker with ambulation. Does need step by step instructions. Has slight left sides weakness. Is quite sleepy today, but awakens easily. Is to have u/s of thyroid and ct of head. Is on regular diet. There has been a change in blood pressure meds, see MAR for these. Cooperative with cares.
--- NOTE | 2016-11-08 16:29 | NUR ---
D: TR progress note for 11/08/16. I: Pt seen for 2 units at 1035 for cognitive task, visual scanning, fine motor skills and coping skills. R: Pt seen for functional skills building working on concentration, sequencing visual scanning and coping skills doing cognitive matching task using large piece adaptive puzzle with different (shape/texture/color) to promote recovery. Pt able to complete 02/18 with 40% accuracy utilizing BUE with fair dexterity with motor skills when maneuvering puzzle pieces but needed max verbal cues along with cue aide due to L) neglect. Pt noted to have major difficulty with not just L) side but L) low quadrant AEB even with verbal and tactile cues still needed repeated attempts to locate puzzle piece. Pt's mood flat with occasional bright facial expressions but did initiate comments regarding songs x3. P: Will continue to see to address goals and plan of care.
[2016-11-09 05:55] LABS: ALBUMIN 3.1 gm/dL (3.5-5.0); ANION GAP 9.5 (10.0-19.0); CALCIUM 8.8 mg/dL (8.5-10.5); CREATININE 1.4 mg/dL (0.6-1.3); PHOSPHORUS 3.7 mg/dL (2.5-4.9); POTASSIUM 3.5 mMol/L (3.7-5.1)
--- NOTE | 2016-11-09 11:40 | NUR ---
D: TR progress note for 11/09/16. I: Pt seen for 2 units at 1100 in group session for education on safety when around pets/animals, functional transfers, leisure education and coping strategies. R: Pt seen for functional skills building working on relaxation techniques, stress/pain management, and continued education on coping skills using animals during Animal Assisted Therapy plus increase safety awareness when around pets. Pt transferred sit > stand from recliner CGA with extra time, pivoted to with walker CGA and transferred into CGA with cues for safety. Pt completed functional communication skills independently which included personal introduction self and name own pet dog. Pt was SBA when petting and interacting with animals/volunteers during session utilizing BUE with fair safety awareness but cues for scanning. Education done on safety with ambulation/mobility in homes when around animals, safety with possibility of poor skin integrity and utilizing pets to assist with coping and stress/pain management when opportunity available. P: Will continue to see to address goals and plan of care.
--- NOTE | 2016-11-09 15:24 | NUR ---
Significant Event: Patient alert and oriented x 3 and is slow to respond to questions. Needs verbal cues when taking his meds. Flat affect. Ambulates with 1 assist and use of a gait belt and walker. Denies discomfort. Slight L) side weakness but able to move all extremities well. Follow up:
--- NOTE | 2016-11-10 02:43 | NUR ---
Significant Event: Patient is alert and oriented slow to respond to questions. Needs lot of verbal ques with everything. Ques with walking 1 assist GB/Walker. Denies pain or discomfort. Slight left sided weakness with a left visual deficit. Takes meds whole. here alot with and attentive to his needs. Follow up:
--- NOTE | 2016-11-10 10:45 | NUR ---
Significant Event:Pt slept late, wanted him to have shower this am, but do to moving slowly was not able to. reports he takes a shower every morning and evening @ home. He does not wake up till he takes a shower in the morning stated. Pt continues to respond slowly to questions. Flat affect. Transfers with 1 assist, walker/gait belt. No complaints of pain @ this time. Assessment unchanged, note charting, Continues to have slight left side weakness, with movement of all extremities. Dviina has been here @ intervals. Pt very dependant of her, pt requests her to do personal cares, and asks staff to step out. Pt has been pleasant and cooperative with plan of care. Takes meds whole with water. usually assists pt to eat. Follow up:pain control, reinforce pt to allow for left field deficiet.
--- NOTE | 2016-11-11 02:53 | NUR ---
Significant Event: Patient alert and oriented, slow to respond to questions. Needs lots of verbal ques. Up one assist with GB/walker needs ques to which way to go. Slight left sided weakness mostly left visual deficit. Takes meds whole with water. is present most of the time and attentive to his needs. Patient is very dependent on his for personal cares. Does not want nursing staff with these cares. They do not use the TV. Denies pain or discomfort. Appetite is not real good needs Ques to eat. Push fluids. Follow up:
[2016-11-11 05:46] LABS: ALBUMIN 3.1 gm/dL (3.5-5.0); CALCIUM 8.6 mg/dL (8.5-10.5); CREATININE 1.4 mg/dL (0.6-1.3); PHOSPHORUS 3.3 mg/dL (2.5-4.9)
--- NOTE | 2016-11-11 11:17 | NUR ---
[facility] Case Management Prefunctioning and Psycho-Social Initial Assessment for 11/03/16, Case Conference Note for 11/08/16 D: Initial Taffy PullerSales Representative Advertising and Case Conference Note. I: Input from: patient, family, Dr. Fischer, Dr. Reddy, Dr. Nails, An Shepherd sports betting manager and Kaleigh BERRYW R: Reason for admission: large area of acute ischemic infarct at the posterior right cerebral hemisphere in the territory of the right posterior cerebral artery. Admission Date to [facility]: 11/03/16 Admission Date to Hospital: 10/26/16 Prior level of functioning: patient was independent with adl's prior to stroke. Prior living situation: multilevel house Financial resources/expectations: patient has Medicare and Commercial insurance. Resources used: none. Resources available: HHC, outpatient therapy, SNF, [facility], [facility], DME. Family support available: family Understands nature of health condition: yes Recognizes impact of health condition on lifestyle: yes Vocational/Educational: retired Behavior/Emotional needs: cues for safety. Monitor for signs and symptoms of depression and anxiety. Legal concerns: none. Discharge goal: home with support of . Assessment: Ramírez is a 71 year old man from [place], [place] admitted after a stroke. His is supportive of patient and his needs. Team conference was held and plan is for patient to d/c in approx. 3 weeks. Patient and are in agreement. Will follow and assist as needed. Orientation to the program and CM services completed with Ramírez. Initial plan of care and estimated length of stay discussed, disclosure statement reviewed including patient assessment rights. P: Target date and individual goals established. Please see POC for details. For additional information please see Nursing Data Base, PT, OT, TR, ST, Initial assessments to [facility].
--- NOTE | 2016-11-11 13:46 | NUR ---
D: TR progress note for 11/11/16. I: Pt seen for 3 units at 1102 for community integration skills building, functional transfers, and safety awareness. R: Pt seen for functional skills building working on mobility, safety, functional transfers and community skills in anticipation for discharge back into community with family. Pt transferred sit > stand from recliner CGA, pivoted to with walker CGA and transferred into WC CGA with cues for safety. Pt given verbal instructions and visual demonstration on proper technique prior to completing transfers. Pt transferred sit > stand from WC CGA, ambulated 3 feet with walker to/from vehicle CGA and transferred in/out of vehicle CGA with cues for hand placement. Pt was SBA for BLE management and positioning of self with seat surface adapted using trash bag to ease task. Pt tolerated ride with no C/o back pain, discomfort or nausea but did verbalize moment of dizziness when session first started. Pt able to verbal correct address to navigate to own home but needed cues and extra time to retrieve information. P: Will continue to see to address goals and plan of care.
--- NOTE | 2016-11-11 15:28 | NUR ---
A&O-DROWSY. SLOW/QUIET SPEECH. 1PA. DIA THERAPIES FAIR. C/O DIZZINESS AND NAUSEA WITH AM BP MEDS. NO C/O PAIN. HTN THIS AM 170'S SBP. OTHER VSS. VOID PER URINAL. NO BM TODAY
--- NOTE | 2016-11-12 01:19 | NUR ---
Significant Event: A&Ox3, slow to respond to questions at times, needs time to process. Weaker on left side, left visual defect. Pupils sluggish but equal. HTN SBP: 150s, DBP: 90s-70s. has requested that morning BP meds be as when given all together the patient gets dizzy and nauseated. voices concerns with medications. Lisa information printed out for on all medications. BM this shift. No significant skin issues noted. Follow up: bp medications
--- NOTE | 2016-11-12 11:42 | NUR ---
Significant Event:Pt awakes easily in am, split medication administration so not so many @ once. Ligia actively invoved with plan of care, has been in and out @ intervals. Rolo PAREDES talked to pts about medications, encouraged pt to drink fluids, which we started on this past week, has been ordering bottled water for him to drink. Has had a quiet morning, up in recliner, and then returned to bed with 1 assist. Assessment unchanged from when last assigned to pt, note charting. Will take Orthostatic BP/P per order next time pt gets up. Pt has been pleasant and cooperative with plan of care. Follow up:pain control, encourage fluids, monitor BP/P when complains of dizziness.
--- NOTE | 2016-11-13 03:13 | NUR ---
Significant Event: Alert/oriented x3, forgetful at times. Needs verbal cues, slow to repond at times. Weaker on left side, left-sided visual defect. , Divina, spent the night, helps with cares. Orthostatic pressures taken - lying 165/84, sitting - 162/72, standing - 163/72. Pt has been encouraged to drink more fluids, has been ordering bottled water for him. 1 assist ambulation/transfers gait unsteady. Weaker on left side. Voided well per bathroom x2, no BM this shift. Follow up: Pain control, encourage fluids, monitor BP/P with complaints of dizziness
[2016-11-13 05:46] LABS: ANION GAP 9.8 (10.0-19.0); CALCIUM 8.5 mg/dL (8.5-10.5); CREATININE 1.4 mg/dL (0.6-1.3); POTASSIUM 3.8 mMol/L (3.7-5.1)
--- NOTE | 2016-11-13 15:34 | NUR ---
Significant Event: Alert and oriented x 3. Forgetful. Needs Cues. Slow to respond. Denies pain. Up with 1A walker and gait belt. in room throughout the day. Helpful with cares. Continent of bowel and bladder. Left sided weakness. Cooperative with cares. Follow up:
--- NOTE | 2016-11-14 03:48 | NUR ---
Significant Event: Alert and oriented X3. Can be forgetful. Slow to answer questions at times. Flat affect. Slight left sided weakness. L visual impairment. Heart rate bradycardic in 50's. No BMs tonight. Ambulated to bathroom with SBA, gait belt and walker, requires some queuing. Voiding without difficulty. , Divina at bedside, helpful with cares. Denies pain. Denies dizziness or nausea.. if pt does have dizziness or nausea, we are to check BP. Taking adequate amounts of PO, helping to encouage fluids. Follow up:
[2016-11-14 06:11] LABS: ALBUMIN 2.9 gm/dL (3.5-5.0); ANION GAP 9.7 (10.0-19.0); CALCIUM 8.8 mg/dL (8.5-10.5); CREATININE 1.3 mg/dL (0.6-1.3); POTASSIUM 3.7 mMol/L (3.7-5.1); TOTAL BILIRUBIN 0.5 mg/dL (0.0-1.5); TOTAL PROTEIN 6.3 g/dL (6.0-8.4)
--- NOTE | 2016-11-14 10:41 | NUR ---
Significant Event:Divided meds up this am for pt as requested. good support, and helps pt with several ADL activities. Pt rests between activities in recliner or bed. A & O x3 with some forgetfulness, relies a lot on his to help with answers. Needs cues, and sometimes repetitive, as pt responds slowly. 1 assist with walker/gaitbelt. Slt left side weakness, no changed in condition since cared for Sat., note charing. Pt has been pleasant and cooperative with plan of care. Follow up:pain control, monitor BP meds take BP/P if light headed.
--- NOTE | 2016-11-15 03:01 | NUR ---
Significant Event: A/O x3. speech slow. denies c/o pain. up to bathroom with assist of . rt side is slightly weaker than left. takes meds whole with water. heart rate 48. continues to encourage fluids. remains in room. she would like to give patient a shower. Follow up:
--- NOTE | 2016-11-15 12:40 | NUR ---
Significant Event: PATIENT UP 1 ASSIST, WALKER, GAIT BELT. LEFT SIDE SLIGHTLY WEAKER THAN RIGHT. FORGETFUL AT TIMES. BRADYCARDIC, HYPERTENSIVE. MEDS WHOLE WITH WATER. DENIES PAIN. CALLS APPROPRIATELY. AT BEDSIDE MOST OF THE TIME, AMBULATES HIM AND SHOWERED HIM TODAY. CONTINENT OF BOWEL AND BLADDER. Follow up:
--- NOTE | 2016-11-15 16:26 | NUR ---
D: TR progress note for 11/15/16. I: Pt seen for 2 units at 1230 for leisure education/participation, cognitive thinking, visual scanning and mobility. R: Pt seen for functional skills building working on attention to task, sequencing, visual scanning, coping skills and mobility to increase independence in all areas. Pt transferred sit > stand CGA, ambulated 5 feet to CGA with walker and transferred into CGA with cues for hand placement. Session completed outdoors, transferred sit > stand from CGA, pivoted to/from picnic table/chair CGA and transferred in/out of low armless chair CGA with cues for technique. Pt worked on scanning and cognition doing new leisure task working on word puzzle, able to complete with min > max cues with fair > poor attention to task but easily redirected. Pt's mood bland > bright with bright facial expressions when discussed likes. with P: Will continue to see to address goals and plan of care.
--- NOTE | 2016-11-16 02:52 | NUR ---
Significant Event:A/O x3. denies pain. takes meds whole with water. bradycardic. at bedside and assist patient with cares. left side slightly weaker than right. Follow up:
--- NOTE | 2016-11-16 15:12 | NUR ---
Significant Event: Pt up in room with walker, 1 assist, needs verbal cueing. assist in room. Pt takes meds with water. Pt denied pain. Pt's refused cymbalta this am, stated Dr Reddy told her he could stop this med. Pt is slow with response at times and difficulty with word finding at times. Follow up: activity, safety
--- NOTE | 2016-11-17 02:19 | NUR ---
Significant Event:A/O but slow to respond at times. Needs extra cuing. Aphaisic at times. at bedside, good about cuing. 1 assist with walker and gaitbelt. Denies the erica for any PRN medications. VSS on room air. assists with all cares. Alarms on when not with patient. Call light in reach. Pleasant Follow up:
--- NOTE | 2016-11-17 12:30 | NUR ---
D: TR progress note for 11/17/16. I: Pt seen for 6 units at for community integration skills building, family training and home visit. R: Pt seen for functional skills building working on transfers, mobility, safety, community skills and family education to increase independence and safety in anticipation for discharge home with spouse. Pt taken home by (TR/OT) for training with spouse present for session. Pt preformed transfers into vehicle at [facility] and at home with both times CGA with cues for technique and hand placement but transfers out was CGA with max cues due t to beginning retropulsive and leaning on vehicle. Pt was SBA for BLE management on all transfers with seat surface adapted using cushion to ease task. Upon arrival at home able to ambulated 18 feet to enter home CGA with use of walker and max cues along with walker management, able to ascend/descend 4 steps with (1) railing CGA to enter/exit home with max verbal cues for sequencing and technique. Pt at home completed transfers on/off of very low recliner chair with surface adapted using pillow, on/off raised toilet seat, in/out of armless kitchen chair, on/off extended tub bench and in/out of bed all CGA but continuous cues for safety and technique due to L) side neglect. Pt ambulated with walker > hand held assist in home CGA with major cues for safety and technique. Pt able to complete hand held ambulation in confining spaces in bathroom with OT/TR with recommendations given on use of grab bars. Recommendations from OT/TR done along with education on energy conservation, safety in home and ways to adapt surfaces completed which included maintaining easy access (removing throw rugs, clearing path ways) to increase ease of mobility and other ways to improve home environment given. For more detailed information please see OT Home Visit Note on 11/17/16. P: Will continue to see to address goals and plan of care.
--- NOTE | 2016-11-17 15:00 | NUR ---
Significant Event:Pt alert and orientated x 3, showered pt this am. Transfers with 1 assist, walker, and gait belt. Verbal cues needed for directions, with repeat @ times, slow response @ times, and word search. Note assessment unchanged, note charting. Pt has been pleasant and cooperative with plan of care. Follow up:alarms on when Divina not present, monitor comfort and safty.
--- NOTE | 2016-11-17 15:09 | NUR ---
D: OT home visit completed on 11/17/16. I: Patient seen 1x, from 10:30 to 12:12, for home visit assessment. 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 R: Patient completed the following tasks with the amount of assist listed. Also listed below are recommendations to increase safety and independence. BEDROOM: Functional mobility - CGA with use of FWW, physical assist to guide FWW PRN d/t L)visual field deficits Bed transfer - CGA for supine<>sit transfer with verbal cues required for optimal body alignment in supine. Bed height: 25" Doorway access - 28" width BATHROOM: Functional mobility - CGA, handheld assist d/t confining space. Toilet transfer - CGA with use of toilet riser with B)armrests. Toilet height: 15.5", toilet height with riser: 19" Tub transfer - CGA to enter/exit tub using extended tub bench Doorway access - 25.75"-bathroom doorway is too narrow for Pt to enter using FWW unless side-stepping through doorway. Trialed handheld assist through doorway with Pt requiring verbal cues and physical assist to compensate for L)visual field deficits. RECOMMENDATIONS: Removal of throw rugs in bathroom to decrease fall risk. Recommend toilet riser with armrests, extended tub bench, handheld shower hose, and grab bar installed diagonally on back wall of tub/shower combination. KITCHEN: Functional mobility - CGA handheld assist Chair transfer - standard kitchen chair, no armrests, CGA for sit<>stand transfer from chair and verbal cues on use of chair back and table for hand placement during sit<>stand transfers. Chair height: 17.5" LIVING ROOM: Functional mobility - CGA with FWW Chair transfer - low recliner with cushion placed to build up chair height (19") RECOMMENDATIONS: Pt's spouse plans to reorganize the living room furniture to allow for easier TV viewing from the recliners. Recommended moving coffee table completely out of walkway to promote Pt's safety d/t visual deficits. Removed 2 throw rugs and 1 footstool in front of recliner to reduce tripping hazards. HOME ENTRY: Functional mobility - CGA with use of FWW, also trialed handheld assist with CGA required for safety and to compensate for visual deficits. Door access - CGA with FWW. Upon entry to the home, there is immediately an open stairway to access the basement. Recommend door/large sturdy gate installation at that basement stairway to promote safety. Stair negotiation - 2 separate outdoor steps, CGA for safety with use of FWW and also trialed with handheld CGA. 4 indoor steps (6", 7", 6.75", 7.75") with railing on R)side going up the stairs. CGA with use of railing to ascend and descend stairs. RECOMMENDATIONS: Installation of door/large gate at basement stairway. ADDITIONAL INFORMATION: Endurance Level - Fair, Pt does demonstrate fatigue with activity requiring seated rest breaks. Car transfers - CGA to enter/exit vehicle 2x with verbal cues on technique. Pt demonstrates one episode of retropulsion when exiting vehicle requiring CGA for safety. GENERAL RECOMMENDATIONS: Recommend 24/7 hands-on assist with functional transfers and I/ADL performance d/t visual deficits and cognitive impairment. Pt's spouse is supportive and verbalizes understanding of all recommendations. Recommend continued OT services at d/c to promote return to PLOF and life roles. Notified physical therapy staff of Pt's performance during home safety evaluation and need for continued assessment of assistive device use as Pt's performance with FWW and handheld assist fluctuates. P: Patient does agree to complete the above listed recommendations and home modifications. Saba Luna, OTR/L (11/17/16)
--- NOTE | 2016-11-18 04:02 | NUR ---
Significant Event:A/O X3. Slow to respond to questions. at bedside to assist with cares and cuing. Transfer 1 assist gaitbelt and walker. Meds whole with water. Bradycardic. VSS on room air. Alarms on when not present. Call light in reach at all times. Follow up:B/P meds. Therapies.
--- NOTE | 2016-11-18 13:54 | NUR ---
Significant Event:Discussed new fatigue/sleepiness with Dr Vora, he says he "probably has a new stroke". L) visual neglect, left side weaker than the right. HR 49-mid 50's. Coreg held this AM. SBP 150's prior to taking AM meds. Took all his meds at once with sips of water today. Ambulates 2 assist with gait belt and walker. Eats with assistance of 1, at bedside at all times.
--- NOTE | 2016-11-19 03:24 | NUR ---
Significant Event: PATIENT IS ALERT AND ORIENTED X3. ANSWERS QUESTIONS APPROPRIATELY ALTHOUGH IS SLOW WITH HIS SPEECH. FLAT AFFECT. SPOUSE IS AT BEDSIDE AT ALL TIMES TO ASSIST IN CARES. SHE TOOK HIM OUTSIDE FOR A WALK LAST NIGHT LEFT SIDE IS SLIGHTLY WEAKER, HR IN 40-50'S COREG HELD YESTERDAY. LAST BM YESTERDAY. Follow up:
--- NOTE | 2016-11-19 12:55 | NUR ---
Significant Event: PATIENT UP 1 ASSIST, WALKER, GAIT BELT. SLIGHTLY WEAKER TO LEFT SIDE AND HAS LEFT VISUAL NEGLECT. IN ROOM HELPS WITH MOST TASKS. ORDER FOR AN OUTING THIS AFTERNOON FOR PATIENT TO GO HOME WITH . COREG HELD THIS AM FOR PULSE OF 48. HELPS WITH FOOD SET UP AND PATIENT FEEDS HIMSELF.SPEECH SLOW, AFFECT FLAT. CONTINENT OF BOWEL AND BLADDER. DENIES PAIN. Follow up:
--- NOTE | 2016-11-20 04:14 | NUR ---
Alert and oriented. Cooperative with cares. stays the night in bed with pt. Up with one assist, gaitbelt and walker. Left sided visual deficit. Pt slow to respond at times, but states he has always been this way, thinking carefully before he answers. Denies pain. Plan is to d/c to home by the end of next week. has several questions regarding discharge planning, equipment needs at home, and follow-up therapy & physicians after hospital discharge. They are planning to move permenantly to [place] sometime in Dec and steps are already being made in selling their [employer] home. Would like to begin gathering info and getting needed equipment, looking into insurance coverage on Monday.
--- NOTE | 2016-11-20 15:11 | NUR ---
Significant Event: Pt up in room with , MIREYA, ute. unsteady, rea. well. at bedside t/o day, very helpful with cares. Pt denied any pain. Coreg held this am, r/t bradycardia below parameter for med. Pt cooperative with cares. Follow up: pt hoping for outing this afternoon, awaiting return call from Diony.
[2016-11-21 06:39] LABS: ALBUMIN 3.2 gm/dL (3.5-5.0); ANION GAP 10.4 (10.0-19.0); CALCIUM 8.7 mg/dL (8.5-10.5); CREATININE 1.5 mg/dL (0.6-1.3); POTASSIUM 3.4 mMol/L (3.7-5.1); TOTAL BILIRUBIN 0.6 mg/dL (0.0-1.5); TOTAL PROTEIN 6.4 g/dL (6.0-8.4)
--- NOTE | 2016-11-21 10:37 | NUR ---
D: Weapons And Tactics Instructor Team Conference Follow up for 11/15/16 I: Input from patient/family R: Met with: patient, family, Kaleigh Nettles ANESTHESIOLOGY PHYSICIAN ASSISTANT Discussed rehab plan, patient progress, discharge plan and estimated length of stay of d/c planned in approx. 7-10 days. Patient/Family Preference: in agreement. Anticipated discharge disposition: home with . Education completed: Education was completed with patient regarding length of stay, progress in therapy and d/c plan. Assessment/Recommendation: Team recommends d/c in approx. 7-10 days. P: Case Coordination: Ramírez is a 71 year old man from [place], [place] admitted after a stroke. Has good family support. Will follow and assist with d/c planning.
--- NOTE | 2016-11-21 11:31 | NUR ---
Significant Event: Patient alert and oriented. Forgetful at times. Up with 1 assist. Heart rate runs on the lower side--in the 50-58. at bedside most of the day.
--- NOTE | 2016-11-22 04:23 | NUR ---
Significant Event: in room doing majority of cares. Pt denies pain, up with one/family assist. Did go outside last evening for short time. Forgetful, up with one assist/walker. Left arm slightly weaker, moves legs wthout difficulty. heart rate 50-52, 142/75. Slow speech, some vision deficit in left. Voids x 3 with assist of , BM on , po 500 ml. When not with pt bed exit alarm on. Follow up:Safety with alarms when not present, monitor b/p parameters for meds. Check b/p if dizzy or lightheaded and notify hospitalist if low. Possible home Fri?
--- NOTE | 2016-11-22 08:38 | NUR ---
PT SCREENED D/T LOS. INTAKE REMAINS ADEQUATE AND WT IS STABLE. REMAINS NOT AT RISK. WILL F/U IN 14 DAYS.
--- NOTE | 2016-11-22 14:32 | NUR ---
D: TR progress note for 11/22/16. I: Pt seen for 2 units at 1300 for family training, community integration skills visual scanning and mobility. R: Pt seen for functional skills building working on mobility, safety and community skills to increase independent in anticipation for discharge home with spouse. Pt's spouse present for session, transferred into their vehicle with spouse providing all hands on assistance. Pt transferred sit > stand from WC SBA, ambulated to/from vehicle 4 feet with 4 WW CGA and transferred in/out of vehicle CGA for safety by spouse. Pt taken throughout [facility] to work on community skills. Pt transferred sit > stand from WC CGA, ambulated 200+ feet with 4WW down hallways and around obstacles with cues given for safety and to utilize stand rest break. Pt transferred in/out of low/soft community chair SBA with good recall on hand placement and upon return to own room transferred sit > stand from WC SBA, pivoted to recliner with 4WW SBA and transferred into chair SBA with good safety skills. P: Will continue to see to address goals and plan of care.
--- NOTE | 2016-11-22 14:59 | NUR ---
Significant event: Up with one assist, walker and gait belt gait is steady. assists with cares. Patient is forgetful. Left arm slightly weaker.
--- NOTE | 2016-11-23 02:51 | NUR ---
Significant Event:A/O but some forgetfulness noted. Transfers 1assist with gb and walker. present to assist with cuing and ADLs. VSS on room air, afebrile. Bradycardic, Coreg held @ 1800. Lungs clear, dim. Left hand slightly weaker than right. Went on outing with late afternoon, very tired this evening. Denies pain. Meds whole with water. Call light in reach. at bedside. Follow up:Alarms on when not present. Monitor BP & HR for hypertensive medications.
[2016-11-23 05:22] LABS: ALBUMIN 3.2 gm/dL (3.5-5.0); ANION GAP 9.8 (10.0-19.0); CALCIUM 8.8 mg/dL (8.5-10.5); CREATININE 1.5 mg/dL (0.6-1.3); POTASSIUM 3.8 mMol/L (3.7-5.1); TOTAL BILIRUBIN 0.6 mg/dL (0.0-1.5); TOTAL PROTEIN 6.4 g/dL (6.0-8.4)
--- NOTE | 2016-11-23 11:47 | NUR ---
D: TR progress note for 11/23/16. I: Pt seen for 2 units at 1100 in group session for education on safety when around pets/animals, functional transfers, leisure education and coping strategies. R: Pt seen for functional skills building working on relaxation techniques, stress/pain management, and continued education on coping skills using animals during Animal Assisted Therapy to increase safety awareness when around pets. Pt transferred sit > stand from recliner SBA pivoted to/from to WC with 4WW SBA and transferred in/out of WC SBA with good recall on locking brakes and hand placement. Pt completed functional communication skills independently which included personal introduction self and about own pet dog. Pt was SBA for handling/maneuvering animals utilizing BUE with good interaction with staff/volunteers. Education done on safety with ambulation/mobility in homes when around animals, safety with possibility of poor skin integrity and utilizing pets to assist with coping and stress/pain management when opportunity available. P: Will continue to see to address goals and plan of care.
--- NOTE | 2016-11-23 14:19 | NUR ---
Significant Event: PATIENT UP 1 ASSIST, WALKER, GAIT BELT. ALERT AND ORIENTED X3 BUT FORGETFUL, NEEDS CUEING AT TIMES FOR TASKS. HELPFUL AT BEDSIDE. HELPED HIM SHOWER TODAY. HYPERTENSIVE AND BRADYCARDIC. HAVE NOT HAD TO HOLD CARDIAC MEDS TODAY. ON ROOM AIR. NO IV ACCESS. SLOW SPEECH. TOLERATED THERAPY WELL TODAY. MEDS WHOLE WITH WATER. Follow up:
--- NOTE | 2016-11-24 05:13 | NUR ---
Significant Event:Up with one assist/gait belt and walker, assists majority of time. Slightly weaker on left side. 179/94. Notified Dr Iglesias--gave 2100 and 2200 meds early, also reported circular raised red itchy blotches on thighs/waistband, and posterior knees after he had been outside in front lobby--obtained order for neosporin ointment qid/prn and applied at 0. Denies pain, speech slow. Takes meds whole with water. b/p 170/80's. Pt/ "debating" from [id number], pt concerned that he is being supervised and told what to do constantly and he wants to be more independent and respected. talkative and concerned about him doing things correctly and safely so that he can be at home. overwhelmed with upcoming discharge and safety, b/p, his forgetfulness at times. was going to go home, but things settled and she stayed the night. Follow up:Monitor b/p and red blotchy rash. Have PT evaluate to be more independent in room, probable discharge on Monday.
--- NOTE | 2016-11-24 13:21 | NUR ---
Significant Event: Pt up in room with walker, SBA, in room and assists with amb most of the time. Pt denied pain t/o day. Pt slow response at times, but appropriate. Red raised rash, appears as bug bites, remain to waist line and down rt leg ant and posterior. Denies any numbness/tingling. Pt cooperative with cares, bland affect at times. Follow up: Pt discharge tomorrow. Activity, safety
[2016-11-24] MEDS ORDERED: NORVASC10 MG PO (23:56)
[2016-11-25] MEDS ORDERED: ASPIRIN (CHILDR81 MG PO (00:06)
[2016-11-25] MEDS ORDERED: COREG12.5 MG PO (00:07)
[2016-11-25] MEDS ORDERED: HYGROTON25 MG PO (00:13)
[2016-11-25] MEDS ORDERED: APRESOLINE25 MG PO (00:17)
[2016-11-25] MEDS ORDERED: PRINIVIL (ZESTR20 MG PO (00:20)
[2016-11-25] MEDS ORDERED: PROTONIX40 MG PO (00:23)
[2016-11-25] MEDS ORDERED: MIRALAX17 GM PO (00:26)
[2016-11-25] MEDS ORDERED: CRESTOR20 MG PO (00:28)
[2016-11-25] MEDS ORDERED: ALDACTONE50 MG PO (00:30)
[2016-11-25] MEDS ORDERED: FLOMAX0.4 MG PO (00:32)
[2016-11-25] MEDS ORDERED: TYLENOL325 MG PO (00:35)
[2016-11-25] MEDS ORDERED: MILK OF MA400 MG/5 M PO (00:38)
[2016-11-25] MEDS ORDERED: NEOSPORIN1 PKT TOP (00:43)
--- NOTE | 2016-11-25 02:36 | NUR ---
in room with patient. Pt up w/ SBA. Takes pills well. is very helpful with cares and she will give him a shower in morning. Denies pain. Red blotchy rash still remain on waistline and right leg. Follow up: Discharge today.
[2016-11-25 05:57] LABS: ALBUMIN 3.3 gm/dL (3.5-5.0); ANION GAP 10.5 (10.0-19.0); CALCIUM 8.8 mg/dL (8.5-10.5); CREATININE 1.7 mg/dL (0.6-1.3); PHOSPHORUS 4.2 mg/dL (2.5-4.9); POTASSIUM 3.5 mMol/L (3.7-5.1)
--- NOTE | 2016-11-25 10:17 | NUR ---
D: Glass Novelty Maker Team Conference Follow up for 11/22/16 and Discharge Note for 11/25/16 I: Input from patient/family R: Met with: patient, family, Kaleigh Nettles TIE IN MACHINE OPERATOR Discussed rehab plan, patient progress, discharge plan and estimated length of stay of d/c planned on 11/25/16 Patient/Family Preference: Patient and are in agreement. Anticipated discharge disposition: home with outpatient therapy. Education completed: Education was completed with patient and regarding length of stay, progress in therapy and d/c plan. Assessment/Recommendation: Team recommends d/c on 11/25/16 with outpatient therapy. P: Case Coordination: Patient is leaving on 11/25/16 with outpatient therapy at [facility]. has borrowed or bought all equipment needed for home. No other needs idenitifed. Will follow up with patient and next week to see how he is doing post discharge.
--- NOTE | 2016-11-25 15:27 | NUR ---
Significant Event: Patient alert but forgetful. Standby assist. Bradycardic. Has some scattered bug bits. To go home today with his . and bedside and helps with all cares. Follow up:
== END 2016-11-25 12:45 | disposition disaster alternative care site (69) | DRG 57 ==
LOC: GIRP 09:51
PROVIDERS: Internal Medicine; Internal Medicine Nephrology; ADMIT Physical Medicine & Rehabilitation
DX: I69.354 Hemiplegia and hemiparesis following cerebral infarction affecting left non-dominant side (principal); N17.9 Acute kidney failure, unspecified; E87.70 Fluid overload, unspecified; I70.1 Atherosclerosis of renal artery; R26.81 Unsteadiness on feet; E78.5 Hyperlipidemia, unspecified; I10 Essential (primary) hypertension; Z74.1 Need for assistance with personal care; N40.0 Benign prostatic hyperplasia without lower urinary tract symptoms; R91.1 Solitary pulmonary nodule; E87.6 Hypokalemia; Z79.82 Long term (current) use of aspirin; E04.1 Nontoxic single thyroid nodule
CPT/HCPCS: A9270

== ENCOUNTER → 2016-11-25 | Outpatient (CLI) | payer MEDICARE, OTHER ==
[~2016-11-25] MED LIST: ALDACTONE50 MG PO; APRESOLINE25 MG PO; ASPIRIN (CHILDR81 MG PO; COREG12.5 MG PO; CRESTOR20 MG PO; FLOMAX0.4 MG PO; HYGROTON25 MG PO; MILK OF MA400 MG/5 M PO; MIRALAX17 GM PO; NEOSPORIN1 PKT TOP; NORVASC10 MG PO; PRINIVIL (ZESTR20 MG PO; PROTONIX40 MG PO; TYLENOL325 MG PO
== END | disposition disaster alternative care site (69) ==
LOC: GCAR 12:00
DX: R26.9 Unspecified abnormalities of gait and mobility (principal); I25.89 Other forms of chronic ischemic heart disease; I10 Essential (primary) hypertension; E78.5 Hyperlipidemia, unspecified; N40.0 Benign prostatic hyperplasia without lower urinary tract symptoms; Z87.19 Personal history of other diseases of the digestive system; I70.1 Atherosclerosis of renal artery; R79.89 Other specified abnormal findings of blood chemistry; I69.851 Hemiplegia and hemiparesis following other cerebrovascular disease affecting right dominant side

== ENCOUNTER → 2016-12-05 | Outpatient (CLI) | payer MEDICARE, OTHER ==
[2016-12-05 16:24] LABS: CALCIUM 9.4 mg/dL (8.5-10.5); CREATININE 1.8 mg/dL (0.6-1.3)
== END ==
LOC: LNHI 16:11
PROVIDERS: Internal Medicine Interventional Cardiology
DX: I10 Essential (primary) hypertension (principal); R60.9 Edema, unspecified; R00.1 Bradycardia, unspecified